=== PATIENT | female | born 1945 | race Caucasian/White ===

== ENCOUNTER → 2016-05-27 | Outpatient (CLI) | payer MEDICARE, OTHER ==
[~2016-05-27] MED LIST: ACHD5005 PO; ASP81TEC PO; ATRV10T PO; GLIM1TAB PO; HYDR-3720 PO; LSNP20T PO; MTF500T PO; ROSU10TA12 PO; SERT50TA9 PO; TRAM50TA2 PO
[2016-05-27 13:02] LABS: BASOPHILS % (AUTO) 1 % (0-10); EOSINOPHILS # (AUTO) 0.1 10^3/uL (0.0-0.3); EOSINOPHILS % (AUTO) 2 % (0-10); LYMPHOCYTES # (AUTO) 1.7 X 10^3 (1.0-4.0); LYMPHOCYTES % (AUTO) 32 % (12-44); MEAN CORPUSCULAR HEMOGLOBIN 31 PG (25-34); MEAN CORPUSCULAR HGB CONC 33 G/DL (32-36); MEAN CORPUSCULAR VOLUME 94 FL (80-99); MEAN PLATELET VOLUME 11.2 FL (7.4-10.4); MONOCYTES # (AUTO) 0.6 X 10^3 (0.0-1.0); MONOCYTES % (AUTO) 11 % (0-12); NEUTROPHILS # (AUTO) 2.9 X 10^3 (1.8-7.8); NEUTROPHILS % (AUTO) 55 % (42-75); PLATELET COUNT 150 10^3/uL (130-400); RED BLOOD COUNT 4.17 10^6/uL (4.35-5.85); RED CELL DISTRIBUTION WIDTH 12.6 % (10.0-14.5); WHITE BLOOD COUNT 5.2 10^3/uL (4.3-11.0)
[2016-05-27 13:35] LABS: ALANINE AMINOTRANSFERASE 18 U/L (0-55); ALBUMIN 3.6 G/DL (3.2-4.5); ANION GAP 7 MMOL/L (5-14); ASPARTATE AMINO TRANSFERASE 16 U/L (5-34); BILIRUBIN,TOTAL 0.6 MG/DL (0.1-1.0); BLOOD UREA NITROGEN 11 MG/DL (7-18); BUN/CREATININE RATIO 13; CALCIUM 8.7 MG/DL (8.5-10.1); CARBON DIOXIDE 28 MMOL/L (21-32); CHLORIDE 108 MMOL/L (98-107); CREATININE SERUM 0.87 MG/DL (0.60-1.30); GFR ESTIMATED > 60; GLUCOSE 127 MG/DL (70-105); POTASSIUM 4.1 MMOL/L (3.6-5.0); SODIUM 143 MMOL/L (135-145); TOTAL PROTEIN 6.1 G/DL (6.4-8.2)
== END ==
LOC: ONC 12:32
PROVIDERS: ATTEND Internal Medicine Hematology & Oncology
DX: D05.12 Intraductal carcinoma in situ of left breast (principal); E11.9 Type 2 diabetes mellitus without complications; I10 Essential (primary) hypertension; Z79.810 Long term (current) use of selective estrogen receptor modulators (SERMs)
CPT/HCPCS: 36415; 80053; 85025; 99213

== ENCOUNTER → 2016-06-28 | Outpatient (CLI) | payer MEDICARE, OTHER ==
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
--- NOTE | 2016-06-28 21:19 | Diagnostic Imaging Report ---
INDICATION: Screening. The current study was also evaluated with a Computer Aided Detection (CAD) system. Comparison made with prior examinations of 06/25/2015, 12/18/2014, 06/19/2014, 08/17/2013, 08/02/2013, and 03/05/2013. FINDINGS: There is a moderate amount of residual fibroglandular tissue bilaterally. There is an unchanged nodular density in the central right breast on a CC projection. There are some vascular calcifications. There is no new dominant mass, spiculated lesion, or suspicious calcification identified. IMPRESSION: Benign. ACR BI-RADS Category 2: Benign findings. Result letter will be mailed to the patient. Note: At least 10% of breast cancer is not imaged by mammography. Dictated by: Dictated on workstation # [id number]
== END ==
LOC: RAD 10:24
PROVIDERS: ATTEND Nurse Practitioner Adult Health
DX: Z12.31 Encounter for screening mammogram for malignant neoplasm of breast (principal)
CPT/HCPCS: 77067

== ENCOUNTER → 2017-05-13 | Outpatient (CLI) | payer MEDICARE, OTHER ==
--- NOTE | 2017-05-13 13:30 | Diagnostic Imaging Report ---
INDICATION: Fall. Left wrist and hand pain. FINDINGS: Left wrist shows no fractures. There are no dislocations. Radiocarpal joint is normal. No evidence of intercarpal ligament disruption demonstrated. No evidence of osteonecrosis. IMPRESSION: Normal left wrist. Dictated by: Dictated on workstation # [id number]
--- NOTE | 2017-05-13 14:13 | Diagnostic Imaging Report ---
INDICATION: Status post recent fall, pain of the distal forearm through the fingers. TECHNIQUE: Three views of the left hand. CORRELATION STUDY: None FINDINGS: Osseous structures intact. Alignment anatomic. Mild joint space narrowing through the interphalangeal joint. A single screw involving the middle phalanx of the ring finger. Mild diffuse bony demineralization. No definitive soft tissue foreign body. Mild soft tissue swelling is noted along the dorsal aspect. IMPRESSION: 1. Negative for acute bony abnormality of the hand. Dictated by: Dictated on workstation # [id number]
== END ==
LOC: RAD 12:28
PROVIDERS: ATTEND Family Medicine
DX: M25.532 Pain in left wrist (principal); M79.642 Pain in left hand; M79.645 Pain in left finger(s); W19.XXXA Unspecified fall, initial encounter
CPT/HCPCS: 73110; 73130

== ENCOUNTER 2017-06-03 15:13 | Outpatient (RCR) | payer MEDICARE, OTHER ==
[2017-05-26 13:18] LABS: BASOPHILS % (AUTO) 1 % (0-10); EOSINOPHILS # (AUTO) 0.1 10^3/uL (0.0-0.3); EOSINOPHILS % (AUTO) 2 % (0-10); HEMATOCRIT 40 % (35-52); HEMOGLOBIN 13.5 G/DL (11.5-16.0); LYMPHOCYTES # (AUTO) 1.9 X 10^3 (1.0-4.0); LYMPHOCYTES % (AUTO) 33 % (12-44); MEAN CORPUSCULAR HEMOGLOBIN 32 PG (25-34); MEAN CORPUSCULAR HGB CONC 34 G/DL (32-36); MEAN CORPUSCULAR VOLUME 95 FL (80-99); MONOCYTES # (AUTO) 0.6 X 10^3 (0.0-1.0); MONOCYTES % (AUTO) 11 % (0-12); NEUTROPHILS # (AUTO) 3.1 X 10^3 (1.8-7.8); NEUTROPHILS % (AUTO) 53 % (42-75); PLATELET COUNT 161 10^3/uL (130-400); RED BLOOD COUNT 4.21 10^6/uL (4.35-5.85); RED CELL DISTRIBUTION WIDTH 12.6 % (10.0-14.5); WHITE BLOOD COUNT 5.8 10^3/uL (4.3-11.0)
[2017-05-26 13:49] LABS: ALANINE AMINOTRANSFERASE 22 U/L (0-55); ALBUMIN 3.7 GM/DL (3.2-4.5); ALKALINE PHOSPHATASE 51 U/L (40-136); BILIRUBIN,TOTAL 0.5 MG/DL (0.1-1.0); BUN/CREATININE RATIO 16; CALCIUM 8.9 MG/DL (8.5-10.1); CARBON DIOXIDE 25 MMOL/L (21-32); CHLORIDE 107 MMOL/L (98-107); CREATININE SERUM 0.81 MG/DL (0.60-1.30); GFR ESTIMATED > 60; GLUCOSE 107 MG/DL (70-105); SODIUM 142 MMOL/L (135-145); TOTAL PROTEIN 6.6 GM/DL (6.4-8.2)
== END 2017-08-24 | disposition home or self-care (01) ==
LOC: ONC 15:13
PROVIDERS: ATTEND Internal Medicine Hematology & Oncology
DX: D05.12 Intraductal carcinoma in situ of left breast (principal); E11.9 Type 2 diabetes mellitus without complications; I10 Essential (primary) hypertension; Z79.810 Long term (current) use of selective estrogen receptor modulators (SERMs); Z79.899 Other long term (current) drug therapy
CPT/HCPCS: 36415; 80053; 82274; 85025; 99213

== ENCOUNTER → 2017-06-29 | Outpatient (CLI) | payer MEDICARE, OTHER ==
--- NOTE | 2017-06-29 18:23 | Diagnostic Imaging Report ---
INDICATION: Routine screening. COMPARISON: Comparison is made with prior exam from 06/28/2016 and 06/25/2015. The current study was also evaluated with a Computer Aided Detection (CAD) system. FINDINGS: Scattered fibroglandular densities are identified bilaterally. Post biopsy changes are identified in the upper-outer aspect of the left breast and appear stable. There are parenchymal and vascular calcifications which appear benign. No mass or malignant-appearing microcalcifications are seen. The axillae are unremarkable. IMPRESSION: Stable bilateral mammograms with no mammographic features suspicious for malignancy identified. ACR BI-RADS Category 2: Benign findings. Result letter will be mailed to the patient. Note: At least 10% of breast cancer is not imaged by mammography. Dictated by: Dictated on workstation # [id number]
== END ==
LOC: RAD 14:24
PROVIDERS: ATTEND Nurse Practitioner Adult Health
DX: Z12.31 Encounter for screening mammogram for malignant neoplasm of breast (principal); D05.12 Intraductal carcinoma in situ of left breast
CPT/HCPCS: 77067

== ENCOUNTER → 2017-08-18 | Outpatient (CLI) | payer OTHER, MEDICARE ==
--- NOTE | 2017-08-18 11:54 | Diagnostic Imaging Report ---
INDICATION: Left lateral and dorsal foot pain and swelling. Time of exam 11:02 AM 3 views of the left foot were obtained. Alignment is normal. There is a probable healing fracture of the left fifth metatarsal near the junction of the proximal and mid third. There is some residual lucency extending through the lateral cortex at this location. No displacement is seen. Phalanges are intact. Midfoot and hindfoot are unremarkable apart from degenerative changes at the first tarsal metatarsal joint. IMPRESSION: Findings suggestive of a healing fracture of the fifth metatarsal, as described. Dictated by: Dictated on workstation # [id number]
== END ==
LOC: RAD 10:26
PROVIDERS: ATTEND Family Medicine
DX: S99.922A Unspecified injury of left foot, initial encounter (principal)
CPT/HCPCS: 73630

== ENCOUNTER → 2017-09-09 | Outpatient (CLI) | payer OTHER, MEDICARE ==
--- NOTE | 2017-09-09 15:45 | Diagnostic Imaging Report ---
INDICATION: Followup left foot fracture. TIME OF EXAM: 2:55 p.m. COMPARISON: Correlation is made with prior study from 08/18/2017. FINDINGS: Multiple views of the left foot again demonstrate probable healing fracture of the fifth metatarsal. There continues to be a transversely oriented lucency through the lateral cortex consistent with an incompletely healed fracture. The remaining metatarsals are intact. Phalanges are unremarkable. Midfoot and hindfoot are unremarkable. IMPRESSION: Healing fifth metatarsal fracture, similar in appearance to the examination from 08/18/2017. Dictated by: Dictated on workstation # [id number]
== END ==
LOC: RAD 14:26
PROVIDERS: ATTEND Family Medicine
DX: S92.352A Displaced fracture of fifth metatarsal bone, left foot, initial encounter for closed fracture (principal); X58.XXXA Exposure to other specified factors, initial encounter
CPT/HCPCS: 73630

== ENCOUNTER → 2017-11-07 | Outpatient (CLI) | payer OTHER, MEDICARE ==
--- NOTE | 2017-11-07 17:34 | Diagnostic Imaging Report ---
INDICATION: Trauma. Pain. COMPARISON: 09/09/2017. FINDINGS: Three views of the left foot are obtained. There is mild generalized osteopenia. There is a fracture again seen through the proximal aspect of the fifth metatarsal. When compared to the prior exam from September, there is a new/recurrent fracture lucency through this region concerning for reinjury/refracture. There is some residual callus seen at the fracture site medially. No additional fracture or osseous destructive process is seen. There are degenerative changes of the first metatarsal-cuneiform articulation. IMPRESSION: There appears to be an acute fracture superimposed over an old healing fracture along the proximal aspect of the fifth metatarsal. There is no discrete fracture seen over the second digit. Dictated by: Dictated on workstation # [id number]
== END ==
LOC: RAD 16:58
PROVIDERS: ATTEND Family Medicine
DX: S99.922A Unspecified injury of left foot, initial encounter (principal); S92.352D Displaced fracture of fifth metatarsal bone, left foot, subsequent encounter for fracture with routine healing
CPT/HCPCS: 73630

== ENCOUNTER → 2018-02-20 | Outpatient (CLI) | payer OTHER, MEDICARE ==
--- NOTE | 2018-02-20 17:12 | Diagnostic Imaging Report ---
INDICATION: Left foot pain COMPARISON is made to a study from 11/07/2017. FINDINGS: A fracture of the proximal shaft of the fifth metatarsal is again noted. There has been some healing on the medial cortex but the fracture line is still apparent on the lateral cortical surface. There does however appear to be some bridging callus. IMPRESSION: Healing fracture of the left fifth metatarsal. This has shown considerable interval healing since 11/07/2017. Dictated by: Dictated on workstation # [id number]
== END ==
LOC: RAD 15:21
PROVIDERS: ATTEND Nurse Practitioner Family
DX: S92.352D Displaced fracture of fifth metatarsal bone, left foot, subsequent encounter for fracture with routine healing (principal)
CPT/HCPCS: 73630

== ENCOUNTER → 2018-03-23 | Outpatient (CLI) | payer MEDICARE, OTHER ==
--- NOTE | 2018-03-23 16:51 | Diagnostic Imaging Report ---
INDICATION: Left foot pain. TECHNIQUE: AP, oblique, and lateral views of the left foot were obtained. COMPARISON: 02/20/2018. FINDINGS: A subacute fracture is again visualized in the fifth metatarsal proximally without change in alignment compared to the prior study. There is persistent lucency at the fracture site which appears about the same as on the previous study. There is underlying degenerative change of the first tarsal/metatarsal joint. There is osteopenia. IMPRESSION: Unchanged appearance of the fifth metatarsal fracture with persistent lucency at the fracture site. The alignment is unchanged compared to the prior study. There is underlying degenerative change as above. There is no new finding otherwise seen. Dictated by: Dictated on workstation # [id number]
== END ==
LOC: RAD 13:48
PROVIDERS: ATTEND Nurse Practitioner Family
DX: S92.352A Displaced fracture of fifth metatarsal bone, left foot, initial encounter for closed fracture (principal)
CPT/HCPCS: 73630

== ENCOUNTER 2018-05-17 09:40 | Outpatient (CLI) | payer MEDICARE, OTHER ==
[~2018-05-17] VITALS: Ht 167.6 cm; Wt 102.5 kg
[2018-05-17] MEDS ORDERED: LISI-552 PO (09:56)
[2018-05-17] MEDS ORDERED: TAMO20TA2 PO (09:56)
[2018-05-17] MEDS ORDERED: ASPI-999 PO (09:56)
[2018-05-17] MEDS ORDERED: SERT50TA9 PO (09:56)
[2018-05-17] MEDS ORDERED: LEVO25TA5 PO (09:56)
[2018-05-17] MEDS ORDERED: METF-397 PO (09:56)
[2018-05-17] MEDS ORDERED: ATOR10TA66 PO (09:56)
[2018-05-17 10:00] VITALS: BP 126/57
== END 2018-05-17 10:29 | disposition home or self-care (01) ==
LOC: PREOP 09:40
PROVIDERS: ATTEND Podiatrist Foot & Ankle Surgery
DX: Z01.818 Encounter for other preprocedural examination (principal)
CPT/HCPCS: 87081

== ENCOUNTER 2018-05-22 06:04 | Day surgery (SDC) | payer MEDICARE, OTHER ==
[~2018-05-22] VITALS: Ht 167.6 cm; Wt 102.5 kg
[~2018-05-22 06:04] MED LIST changes: +ASPI-999 PO; +ATOR10TA66 PO; +LEVO25TA5 PO; +LISI-552 PO; +METF-397 PO; +TAMO20TA2 PO
--- OUTSIDE RECORDS SUMMARY | 2018-05-22 06:09 | XMS REPORT | CCD ---
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 Name Role Phone PP Unavailable CCM Unavailable Summary Purpose Interface Exchange Insurance Providers Payer name Policy type / Coverage type Covered constitution party ID Effective Begin Date Effective End Date WPS Medicare Part B Medicare Part B [id number] 2018 Unknown [employer] Medicare Part B [id number] Unknown Family History Family History data not found Social History Social History Element Codes Description Effective Dates Marital status Unknown Enrique 01/23/2018 Number of children Unknown 4 01/23/2018 Employment Unknown Retired 01/23/2018 Employment Unknown Retired 01/23/[address]: 843942285 Never smoker 01/23/[address]: 094600160 Never drinks alcohol 01/23/2018 Allergies, Adverse Reactions, Alerts Substance Reaction Codes Entered Date Inactivated Date Status * NO KNOWN DRUG ALLERGIES Unknown 04/06/2018 No Inactive Date Active Past Medical History Illness Codes Condition Status Onset Date Resolved Date Essential (primary) hypertension ICD-9: 401.1 ICD-10: I10 Active 01/23/2018 Unknown Pain in left foot ICD- 9: 729.5 ICD-10: M79.672 Active 02/20/2018 Unknown Type 2 diabetes mellitus without complications ICD-9: 250.00 ICD-10: E11.9 Active 01/23/2018 Unknown Hypothryroidism Unknown Active 04/24/2018 Unknown Hypothyroidism, unspecified ICD-9: 244.9 ICD-10: E03.9 Active 04/24/2018 Unknown Lumbago with sciatica, right side ICD-9: 724.3 ICD-10: M54.41 Active 04/06/2018 Unknown Major depressive disorder, recurrent, mild ICD-9: 296.31 ICD-10: F33.0 Active 01/23/2018 Unknown Other specified abnormal findings of blood chemistry ICD-9: 794.5 ICD-10: R79.89 Active 04/11/2018 Unknown Sciatica Unknown Active 04/06/2018 Unknown Mixed hyperlipidemia ICD-9: 272.2 ICD-10: E78.2 Active 01/23/2018 Unknown Diabetes Unknown Active 01/23/2018 Unknown Cough ICD-9: 786.2 ICD-10: R05 Active 01/23/2018 Unknown Problems Condition Codes Effective Dates Condition Status Essential (primary) hypertension ICD-9: 401.1 ICD-10: I10 01/23/2018 Active Pain in left foot ICD- 9: 729.5 ICD-10: M79.672 02/20/2018 Active Type 2 diabetes mellitus without complications ICD-9: 250.00 ICD-10: E11.9 01/23/2018 Active Hypothryroidism Unknown 04/24/2018 Active Hypothyroidism, unspecified ICD-9: 244.9 ICD-10: E03.9 04/24/2018 Active Lumbago with sciatica, right side ICD-9: 724.3 ICD-10: M54.41 04/06/2018 Active Major depressive disorder, recurrent, mild ICD-9: 296.31 ICD-10: F33.0 01/23/2018 Active Other specified abnormal findings of blood chemistry ICD-9: 794.5 ICD-10: R79.89 04/11/2018 Active Sciatica Unknown 04/06/2018 Active Mixed hyperlipidemia ICD-9: 272.2 ICD-10: E78.2 01/23/2018 Active Diabetes Unknown 01/23/2018 Active Cough ICD-9: 786.2 ICD-10: R05 01/23/2018 Active Medications Medication Codes Instructions Start Date Stop Date Status Fill Instructions metformin ER 1,000 mg 24 hr tablet,extended release RxNorm: 4188767 1 Tablet(s) PO daily 04/24/2018 07/17/2019 Active Synthroid 25 mcg tablet RxNorm: 160374 1 Tablet(s) PO QAM 04/1207/10/2018 Active Synthroid 25 mcg tablet RxNorm: 436907 1 Tablet(s) PO QAM 04/1204/11/2018 Inactive Lipitor 10 mg tablet RxNorm: 561914 1 Tablet(s) PO daily 201702/24/2019 Active lisinopril 20 mg tablet RxNorm: 962340 1 Tablet(s) PO daily 12/201708/11/2018 Active Lipitor 10 mg tablet RxNorm: 258421 1 Tablet(s) PO every other day 02/13/2018 03/01/2018 Inactive metformin ER 500 mg tablet,extended release 24 hr RxNorm: 151305 1 Tablet(s) PO daily 02/06/2018 04/23/2018 Inactive sertraline 100 mg tablet RxNorm: 672020 1 Tablet(s) PO daily 07/21/2018 Active lisinopril 20 mg tablet RxNorm: 940937 1 Tablet(s) PO daily 02/12/2018 Inactive Lipitor 10 mg tablet RxNorm: 089679 1 Tablet(s) PO daily 201701/22/2018 Inactive lisinopril 20 mg tablet RxNorm: 161403 1 Tablet(s) PO daily 01/22/2018 Inactive Lipitor 10 mg tablet RxNorm: 514839 1 Tablet(s) PO every other day 01/23/2018 02/12/2018 Inactive tamoxifen 20 mg tablet RxNorm: 899162 1 Tablet(s) PO daily No Start Date Active aspirin 81 mg tablet,delayed release RxNorm: 701086 1 Tablet(s) PO daily No Start Date Active metformin ER 500 mg tablet,extended release 24 hr RxNorm: 835490 1 Tablet(s) PO daily No Start Date 02/05/2018 Inactive sertraline 100 mg tablet RxNorm: 462317 1 Tablet(s) PO daily No Start Date 01/22/2018 Inactive Medication Administered No Medication Administered data Immunizations No Immunization data Assessments Condition Codes Effective Dates Type 2 diabetes mellitus without complications ICD-10: E11.9 ICD-9: 250.00 05/15/2018 Pain in left foot ICD-10: M79.672 ICD-9: 729.5 05/15/2018 Essential (primary) hypertension ICD-10: I10 ICD-9: 401.1 05/15/2018 Lumbago with sciatica, right side ICD-10: M54.41 ICD-9: 724.3 04/24/2018 Major depressive disorder, recurrent, mild ICD-10: F33.0 ICD-9: 296.31 04/24/2018 Hypothyroidism, unspecified ICD-10: E03.9 ICD-9: 244.9 04/24/2018 Other specified abnormal findings of blood chemistry ICD-10 : R79.89 ICD-9: 794.5 04/11/2018 Mixed hyperlipidemia ICD-10: E78.2 ICD-9: 272.2 04/06/2018 Cough ICD-10: R05 ICD-9: 786.2 01/23/2018 Reason For Visit Reason For Visit Effective Dates Notes pre-op/surgery consult 05/15/2018 low back and leg pain 04/24/2018 low back and leg pain 04/06/2018 foot pain 02/20/2018 cough 01/23/2018 Results Observation Observation Code Item Item Code Result Date Free T4 Gay927 FREE T4 0.71 ng/dL 04/11/2018 Cbc With Differential Ord2 WBC 6.91 K/ul 04/07/2018 Cbc With Differential Ord2 RBC 4.18 M/ul 04/07/2018 Cbc With Differential Ord2 HGB 13.4 g/dl 04/07/2018 Cbc With Differential Ord2 HCT 40.7 % 04/07/2018 Cbc With Differential Ord2 Neut% 55.8 % 04/07/2018 Cbc With Differential Ord2 MCV 97.4 fl 04/07/2018 Cbc With Differential Ord2 Lymph% 31.1 % 04/07/2018 Cbc With Differential Ord2 MCH 32.1 pg 04/07/2018 Cbc With Differential Ord2 [place]% 10.0 % 04/07/2018 Cbc With Differential Ord2 MCHC 32.9 pg 04/07/2018 Cbc With Differential Ord2 Eos% 2.7 % 04/07/2018 Cbc With Differential Ord2 PLT 171 K/ul 04/07/2018 Cbc With Differential Ord2 Baso% 0.4 % 04/07/2018 Cbc With Differential Ord2 RDW 12.9 % 04/07/2018 Cbc With Differential Ord2 Neut ABS# 3.85 K/ul 04/07/2018 Cbc With Differential Ord2 Lymph ABS# 2.15 K/ul 04/07/2018 Cbc With Differential Ord2 [place] ABS# 0.7 K/ul 04/07/2018 Cbc With Differential Ord2 Eos ABS# 0.2 K/ul 04/07/2018 Cbc With Differential Ord2 Baso ABS# 0.0 K/ul 04/07/2018 Lipid Ord30 CHOL 161 mg/dL 04/07/2018 Lipid Ord30 HDL 56.0 mg/dl 04/07/2018 Lipid Ord30 TRIG 99 mg/dL 04/07/2018 Lipid Ord30 LDL 85 mg/dL 04/07/2018 Lipid Ord30 C/HDL 2.9 Ratio 04/07/2018 Tsh Ord6 TSH (3rd IS) 7.03 uIU/mL 04/07/2018 Comp Metabolic Izv873 NA 141 mEq/L 04/07/2018 Comp Metabolic Edn691 K 3.9 mEq/L 04/07/2018 Comp Metabolic Mfo570 CL 103 mEq/L 04/07/2018 Comp Metabolic Sdi454 CO2 30.0 mEq/L 04/07/2018 Comp Metabolic Hsb419 ANION GAP 12 04/07/2018 Comp Metabolic Gte727 GLUCOSE 127 mg/dL 04/07/2018 Comp Metabolic Ukb285 Creat 0.8 mg/dL 04/07/2018 Comp Metabolic Gko922 eGFR 78 ml/min/1.73m2 04/07/2018 Comp Metabolic Tnu333 BUN 16 mg/dL 04/07/2018 Comp Metabolic Awt061 B/C Ratio 20.8 Ratio 04/07/2018 Comp Metabolic Zlw979 CALCIUM 8.9 mg/dL 04/07/2018 Comp Metabolic Amb090 ALK PHOS 48 U/L 04/07/2018 Comp Metabolic Uqp887 AST(SGOT) 17 U/L 04/07/2018 Comp Metabolic Uqt949 ALT(SGPT) 17 U/L 04/07/2018 Comp Metabolic Sel930 BILI T 0.7 mg/dL 04/07/2018 Comp Metabolic Yav537 ALBUMIN 3.6 g/dL 04/07/2018 Comp Metabolic Lfz750 TPRO 6.0 g/dL 04/07/2018 Comp Metabolic Eoq266 GLOB 2.4 g/dL 04/07/2018 Comp Metabolic Pcw064 A/G Ratio 1.5 Ratio 04/07/2018 Comp Metabolic Wsj556 Osmo 284 mOsmo 04/07/2018 %Hba1C Jzx347 % HbA1c 64260-0 6.7 % 04/07/2018 %Hba1C Dwv943 Gluc Ave 146 mg/dL 04/07/2018 Review of Systems System Result Effective Dates Constitutional recent illness 05/15/2018 Constitutional No anorexia 05/15/2018 Constitutional No night sweats 2018 Constitutional No chills 05/15/2018 Constitutional No diaphoresis 05/15/2018 Constitutional fatigue 05/15/2018 Constitutional No fever 05/15/2018 Constitutional No insomnia 05/15/2018 Constitutional No malaise 05/15/2018 Constitutional No weight loss 05/15/2018 Eyes No eye discharge 05/15/2018 Eyes No eye erythema 05/15/2018 Ears/Nose/Throat/Neck No dizziness 2018 Ears/Nose/Throat/Neck No headache 2018 Ears/Nose/Throat/Neck No nasal allergies 05/15/2018 Ears/Nose/Throat/Neck No nasal discharge 05/15/2018 Ears/Nose/Throat/Neck No otalgia 2018 Cardiovascular No chest pain/pressure 11/2018 Cardiovascular No dyspnea 05/15/2018 Cardiovascular No edema 05/15/2018 Gastrointestinal No abdominal pain 2018 Gastrointestinal No constipation 2018 Gastrointestinal No diarrhea 05/15/2018 Genitourinary/Nephrology No dysuria 05/15 Musculoskeletal back pain 05/15/2018 Musculoskeletal joint complaint 2018 Musculoskeletal sciatica 05/15/2018 Dermatologic No rash 05/15/2018 Neurologic No alteration of consciousness 05/15/2018 Psychiatric depression 05/15/2018 Endocrine No dry or coarse skin 2018 Constitutional No recent illness 2017 Constitutional No anorexia 04/24/2018 Constitutional No night sweats 2017 Constitutional No chills 04/24/2018 Constitutional No diaphoresis 04/24/2018 Constitutional fatigue 04/24/2018 Constitutional No fever 04/24/2018 Constitutional No insomnia 04/24/2018 Constitutional No malaise 04/24/2018 Constitutional No weight loss 04/24/2018 Constitutional weight gain 04/24/2018 Eyes No eye discharge 04/24/2018 Eyes No eye erythema 04/24/2018 Ears/Nose/Throat/Neck No dizziness 2017 Ears/Nose/Throat/Neck No headache 2017 Ears/Nose/Throat/Neck No nasal allergies 04/24/2018 Ears/Nose/Throat/Neck No nasal discharge 04/24/2018 Ears/Nose/Throat/Neck No otalgia 2017 Cardiovascular No chest pain/pressure Cardiovascular No dyspnea 04/24/2018 Cardiovascular No edema 04/24/2018 Gastrointestinal No abdominal pain 2017 Gastrointestinal No constipation 2017 Gastrointestinal No diarrhea 04/24/2018 Genitourinary/Nephrology No dysuria 04/24 Musculoskeletal back pain 04/24/2018 Musculoskeletal joint complaint 2017 Musculoskeletal sciatica 04/24/2018 Dermatologic No rash 04/24/2018 Neurologic No alteration of consciousness 04/24/2018 Psychiatric depression 04/24/2018 Endocrine No dry or coarse skin 2017 Constitutional obesity 04/24/2018 Respiratory No cough 04/24/2018 Constitutional recent illness 04/06/2018 Constitutional No anorexia 04/06/2018 Constitutional No night sweats 2017 Constitutional No chills 04/06/2018 Constitutional No diaphoresis 04/06/2018 Constitutional fatigue 04/06/2018 Constitutional No fever 04/06/2018 Constitutional No insomnia 04/06/2018 Constitutional No malaise 04/06/2018 Constitutional No weight loss 04/06/2018 Constitutional weight gain 04/06/2018 Eyes No eye discharge 04/06/2018 Eyes No eye erythema 04/06/2018 Ears/Nose/Throat/Neck No dizziness 2017 Ears/Nose/Throat/Neck No headache 2017 Ears/Nose/Throat/Neck No nasal allergies 04/06/2018 Ears/Nose/Throat/Neck No nasal discharge 04/06/2018 Ears/Nose/Throat/Neck No otalgia 2017 Cardiovascular No chest pain/pressure Cardiovascular No dyspnea 04/06/2018 Cardiovascular No edema 04/06/2018 Gastrointestinal No abdominal pain 2017 Gastrointestinal No constipation 2017 Gastrointestinal No diarrhea 04/06/2018 Genitourinary/Nephrology No dysuria 04/06 Musculoskeletal joint complaint 2017 Dermatologic No rash 04/06/2018 Neurologic No alteration of consciousness 04/06/2018 Psychiatric depression 04/06/2018 Endocrine No dry or coarse skin 2017 Musculoskeletal back pain 04/06/2018 Musculoskeletal sciatica 04/06/2018 Constitutional No recent illness 2017 Constitutional No anorexia 02/20/2018 Constitutional No night sweats 2017 Constitutional No chills 02/20/2018 Constitutional No diaphoresis 02/20/2018 Constitutional No fatigue 02/20/2018 Constitutional No fever 02/20/2018 Constitutional No insomnia 02/20/2018 Constitutional No malaise 02/20/2018 Constitutional No weight gain 02/20/2018 Constitutional No weight loss 02/20/2018 Musculoskeletal joint complaint 2017 Musculoskeletal bone fracture 02/20/2018 Constitutional recent illness 01/23/2018 Constitutional No anorexia 01/23/2018 Constitutional No night sweats 2017 Constitutional No chills 01/23/2018 Constitutional No diaphoresis 01/23/2018 Constitutional fatigue 01/23/2018 Constitutional No fever 01/23/2018 Constitutional No insomnia 01/23/2018 Constitutional No malaise 01/23/2018 Constitutional No weight loss 01/23/2018 Constitutional weight gain 01/23/2018 Eyes No eye discharge 01/23/2018 Eyes No eye erythema 01/23/2018 Ears/Nose/Throat/Neck No dizziness 2017 Ears/Nose/Throat/Neck No headache 2017 Ears/Nose/Throat/Neck No nasal allergies 01/23/2018 Ears/Nose/Throat/Neck No nasal discharge 01/23/2018 Ears/Nose/Throat/Neck No otalgia 2017 Cardiovascular No chest pain/pressure Cardiovascular No dyspnea 01/23/2018 Cardiovascular No edema 01/23/2018 Cardiovascular hypertension 01/23/2018 Respiratory productive sputum 01/23/2018 Respiratory cough 01/23/2018 Gastrointestinal No abdominal pain 2017 Gastrointestinal No constipation 2017 Gastrointestinal No diarrhea 01/23/2018 Genitourinary/Nephrology No dysuria 01/23 Musculoskeletal joint complaint 2017 Dermatologic No rash 01/23/2018 Neurologic No alteration of consciousness 01/23/2018 Psychiatric depression 01/23/2018 Endocrine No dry or coarse skin 2017 Physical Exam Exam Name System Name Item Name Status Result Effective Dates Notes Full Exam - General 1994 Constitutional general appearance Overall: well developed 05/15/2018 None Full Exam - General 1994 Constitutional general appearance Overall: in no acute distress 05/15/2018 None Full Exam - General 1994 Constitutional general appearance Overall: well nourished 05/15/2018 None Full Exam - General 1994 Eyes conjunctiva /eyelids Overall: conjunctiva clear 05/15/2018 None Full Exam - General 1994 Eyes pupils and irises Overall: pupils equal, round, reactive to light and accomodation 05/15/2018 None Full Exam - General 1994 Ears/Nose/Throat otoscopic exam Overall: external auditory canals clear 05/15/2018 None Full Exam - General 1994 Ears/Nose/Throat otoscopic exam Overall: tympanic membranes clear 05/15/2018 None Full Exam - General 1994 Ears/Nose/Throat oral cavity/pharynx/larynx Overall: oral mucosa clear 05/15/2018 None Full Exam - General 1994 Respiratory auscultation Overall: breath sounds clear bilaterally 05/15/2018 None Full Exam - General 1994 Respiratory respiratory effort/rhythm Overall: no retractions 05/15/2018 None Full Exam - General 1994 Respiratory respiratory effort/rhythm Overall: normal rate 05/15/2018 None Full Exam - General 1994 Cardiovascular auscultation of heart Overall: regular rate 05/15/2018 None Full Exam - General 1994 Cardiovascular auscultation of heart Overall: normal heart sounds 05/15/2018 None Full Exam - General 1994 Cardiovascular auscultation of heart Overall: no murmurs 05/15/2018 None Full Exam - General 1994 Abdomen abdominal exam Overall: no tenderness 05/15/2018 None Full Exam - General 1994 Abdomen abdominal exam Overall: normal bowel sounds 05/15/2018 None Full Exam - General 1994 Lymphatic neck nodes Overall: anterior cervical chain benign 05/15/2018 None Full Exam - General 1994 Lymphatic neck nodes Overall: posterior cervical chain benign 05/15/2018 None Full Exam - General 1994 Musculoskeletal spine, ribs and pelvis Sacroiliac joints: tender right sacroiliac joint 05/15/2018 None Full Exam - General 1994 Musculoskeletal gait and station Overall: normal station 05/15/2018 None Full Exam - General 1994 Integument inspection of skin Overall: few scattered moles, no gross abnormalities 05/15/2018 None Full Exam - General 1994 Neurologic cranial nerves Overall: crainial nerves 2 - 12 grossly intact 05/15/2018 None Full Exam - General 1994 Psychiatric orientation/consciousness Overall: oriented to person, place and time 05/15/2018 None Full Exam - General 1994 Constitutional general appearance Overall: well developed 04/24/2018 None Full Exam - General 1994 Constitutional general appearance Overall: in no acute distress 04/24/2018 None Full Exam - General 1994 Constitutional general appearance Overall: well nourished 04/24/2018 None Full Exam - General 1994 Eyes conjunctiva /eyelids Overall: conjunctiva clear 04/24/2018 None Full Exam - General 1994 Eyes pupils and irises Overall: pupils equal, round, reactive to light and accomodation 04/24/2018 None Full Exam - General 1994 Ears/Nose/Throat otoscopic exam Overall: external auditory canals clear 04/24/2018 None Full Exam - General 1994 Ears/Nose/Throat otoscopic exam Overall: tympanic membranes clear 04/24/2018 None Full Exam - General 1994 Ears/Nose/Throat oral cavity/pharynx/larynx Overall: oral mucosa clear 04/24/2018 None Full Exam - General 1994 Respiratory auscultation Overall: breath sounds clear bilaterally 04/24/2018 None Full Exam - General 1994 Respiratory respiratory effort/rhythm Overall: no retractions 04/24/2018 None Full Exam - General 1994 Respiratory respiratory effort/rhythm Overall: normal rate 04/24/2018 None Full Exam - General 1994 Cardiovascular auscultation of heart Overall: regular rate 04/24/2018 None Full Exam - General 1994 Cardiovascular auscultation of heart Overall: normal heart sounds 04/24/2018 None Full Exam - General 1994 Cardiovascular auscultation of heart Overall: no murmurs 04/24/2018 None Full Exam - General 1994 Abdomen abdominal exam Overall: no tenderness 04/24/2018 None Full Exam - General 1994 Abdomen abdominal exam Overall: normal bowel sounds 04/24/2018 None Full Exam - General 1994 Lymphatic neck nodes Overall: anterior cervical chain benign 04/24/2018 None Full Exam - General 1994 Lymphatic neck nodes Overall: posterior cervical chain benign 04/24/2018 None Full Exam - General 1994 Musculoskeletal spine, ribs and pelvis Sacroiliac joints: tender right sacroiliac joint 04/24/2018 None Full Exam - General 1994 Musculoskeletal gait and station Overall: normal gait 04/24/2018 None Full Exam - General 1994 Musculoskeletal gait and station Overall: normal station 04/24/2018 None Full Exam - General 1994 Integument inspection of skin Overall: few scattered moles, no gross abnormalities 04/24/2018 None Full Exam - General 1994 Neurologic cranial nerves Overall: crainial nerves 2 - 12 grossly intact 04/24/2018 None Full Exam - General 1994 Psychiatric orientation/consciousness Overall: oriented to person, place and time 04/24/2018 None Full Exam - General 1994 Constitutional general appearance Overall: well developed 04/06/2018 None Full Exam - General 1994 Constitutional general appearance Overall: in no acute distress 04/06/2018 None Full Exam - General 1994 Constitutional general appearance Overall: well nourished 04/06/2018 None Full Exam - General 1994 Eyes conjunctiva /eyelids Overall: conjunctiva clear 04/06/2018 None Full Exam - General 1994 Eyes pupils and irises Overall: pupils equal, round, reactive to light and accomodation 04/06/2018 None Full Exam - General 1994 Ears/Nose/Throat otoscopic exam Overall: external auditory canals clear 04/06/2018 None Full Exam - General 1994 Ears/Nose/Throat otoscopic exam Overall: tympanic membranes clear 04/06/2018 None Full Exam - General 1994 Ears/Nose/Throat oral cavity/pharynx/larynx Overall: oral mucosa clear 04/06/2018 None Full Exam - General 1994 Respiratory auscultation Overall: breath sounds clear bilaterally 04/06/2018 None Full Exam - General 1994 Respiratory respiratory effort/rhythm Overall: no retractions 04/06/2018 None Full Exam - General 1994 Respiratory respiratory effort/rhythm Overall: normal rate 04/06/2018 None Full Exam - General 1994 Cardiovascular auscultation of heart Overall: regular rate 04/06/2018 None Full Exam - General 1994 Cardiovascular auscultation of heart Overall: normal heart sounds 04/06/2018 None Full Exam - General 1994 Cardiovascular auscultation of heart Overall: no murmurs 04/06/2018 None Full Exam - General 1994 Abdomen abdominal exam Overall: no tenderness 04/06/2018 None Full Exam - General 1994 Abdomen abdominal exam Overall: normal bowel sounds 04/06/2018 None Full Exam - General 1994 Lymphatic neck nodes Overall: anterior cervical chain benign 04/06/2018 None Full Exam - General 1994 Lymphatic neck nodes Overall: posterior cervical chain benign 04/06/2018 None Full Exam - General 1994 Musculoskeletal gait and station Overall: normal gait 04/06/2018 None Full Exam - General 1994 Musculoskeletal gait and station Overall: normal station 04/06/2018 None Full Exam - General 1994 Integument inspection of skin Overall: few scattered moles, no gross abnormalities 04/06/2018 None Full Exam - General 1994 Neurologic cranial nerves Overall: crainial nerves 2 - 12 grossly intact 04/06/2018 None Full Exam - General 1994 Psychiatric orientation/consciousness Overall: oriented to person, place and time 04/06/2018 None Full Exam - General 1995 Musculoskeletal spine, ribs and pelvis Sacroiliac joints: tender right sacroiliac joint 04/06/2018 None Full Exam - Orthopedics Constitutional general appearance Overall: well nourished 02/20/2018 None Full Exam - Orthopedics Constitutional general appearance Overall: well developed 02/20/2018 None Full Exam - Orthopedics Constitutional general appearance Overall: in no acute distress 02/20/2018 None Full Exam - Orthopedics Constitutional general appearance Overall: normal body habitus 02/20/2018 None Full Exam - Orthopedics Constitutional general appearance Overall: no deformities 02/20/2018 None Full Exam - Orthopedics Constitutional general appearance Overall: well groomed 02/20/2018 None Full Exam - Orthopedics Constitutional general appearance Overall: atraumatic 02/20/2018 None Full Exam - Orthopedics Constitutional general appearance Overall: no assistive devices 02/20/2018 None Full Exam - Orthopedics Constitutional general appearance Overall: cooperative 02/20/2018 None Full Exam - Orthopedics Constitutional general appearance Overall: healthy appearance 02/20/2018 None Full Exam - Orthopedics Constitutional general appearance Overall: pleasant 02/20/2018 None Full Exam - Orthopedics Constitutional general appearance Overall: relaxed 02/20/2018 None Full Exam - Orthopedics MS: left lower extremity insp & palp - LLE Foot: swelling 02/20/2018 lateral aspect of foot Full Exam - Orthopedics MS: left lower extremity insp & palp - LLE Foot: tenderness at the metatarsals 02/20/2018 None Full Exam - Orthopedics MS: left lower extremity range of motion - LLE Foot: unable to fan toes 02/20/2018 claw toe 2nd toe Full Exam - Orthopedics Respiratory auscultation Overall: breath sounds clear bilaterally 02/20/2018 None Full Exam - Orthopedics Respiratory respiratory effort/rhythm Overall: no retractions 02/20/2018 None Full Exam - Orthopedics Respiratory respiratory effort/rhythm Overall: normal rate 02/20/2018 None Full Exam - Orthopedics Respiratory respiratory effort/rhythm Overall: normal , symmetric chest expansion 02/20/2018 None Full Exam - Orthopedics Cardiovascular examination of vasculature Overall: good capillary refill 02/20/2018 None Full Exam - Orthopedics Eyes conjunctiva/ eyelids Overall: conjunctiva clear 02/20/2018 None Full Exam - Orthopedics Psychiatric orientation/consciousness Overall: oriented to person, place and time 02/20/2018 None Full Exam - Orthopedics Integument insp & palp - left lower extremity Foot inspection: no rash or lesions 02/20/2018 None Full Exam - General 1994 Constitutional general appearance Overall: well developed 01/23/2018 None Full Exam - General 1994 Constitutional general appearance Overall: in no acute distress 01/23/2018 None Full Exam - General 1994 Constitutional general appearance Overall: well nourished 01/23/2018 None Full Exam - General 1994 Psychiatric orientation/consciousness Overall: oriented to person, place and time 01/23/2018 None Full Exam - General 1994 Neurologic cranial nerves Overall: crainial nerves 2 - 12 grossly intact 01/23/2018 None Full Exam - General 1994 Integument inspection of skin Overall: few scattered moles, no gross abnormalities 01/23/2018 None Full Exam - General 1994 Musculoskeletal gait and station Overall: normal gait 01/23/2018 None Full Exam - General 1994 Musculoskeletal gait and station Overall: normal station 01/23/2018 None Full Exam - General 1994 Lymphatic neck nodes Overall: posterior cervical chain benign 01/23/2018 None Full Exam - General 1994 Lymphatic neck nodes Overall: anterior cervical chain benign 01/23/2018 None Full Exam - General 1994 Abdomen abdominal exam Overall: no tenderness 01/23/2018 None Full Exam - General 1994 Abdomen abdominal exam Overall: normal bowel sounds 01/23/2018 None Full Exam - General 1994 Cardiovascular auscultation of heart Overall: regular rate 01/23/2018 None Full Exam - General 1994 Cardiovascular auscultation of heart Overall: normal heart sounds 01/23/2018 None Full Exam - General 1994 Cardiovascular auscultation of heart Overall: no murmurs 01/23/2018 None Full Exam - General 1994 Respiratory auscultation Overall: breath sounds clear bilaterally 01/23/2018 None Full Exam - General 1994 Respiratory respiratory effort/rhythm Overall: no retractions 01/23/2018 None Full Exam - General 1994 Respiratory respiratory effort/rhythm Overall: normal rate 01/23/2018 None Full Exam - General 1994 Ears/Nose/Throat otoscopic exam Overall: external auditory canals clear 01/23/2018 None Full Exam - General 1994 Ears/Nose/Throat otoscopic exam Overall: tympanic membranes clear 01/23/2018 None Full Exam - General 1994 Ears/Nose/Throat oral cavity/pharynx/larynx Overall: oral mucosa clear 01/23/2018 None Full Exam - General 1994 Eyes conjunctiva /eyelids Overall: conjunctiva clear 01/23/2018 None Full Exam - General 1994 Eyes pupils and irises Overall: pupils equal, round, reactive to light and accomodation 01/23/2018 None Procedures No Procedures data Vital Signs Date Vital 05/15/2018 Blood Pressure 1: 128/66 Code : 8480-6 BMI: 36.5 Code : 17470-8 Heart Rate 1 : 83 bpm Height: 5'6" SpO2: 96% Weight: 226 lbs 04/24/2018 Blood Pressure 1: 140/82 Code : 8480-6 BMI: 36.8 Code : 52663-2 Heart Rate 1 : 80 bpm Height: 5'6" SpO2: 92% Weight: 228 lbs 04/06/2018 Blood Pressure 1: 136/56 Code : 8480-6 BMI: 36.6 Code : 62424-7 Heart Rate 1 : 91 bpm Height: 5'6" SpO2: 97% Weight: 227 lbs 02/20/2018 Blood Pressure 1: 140/70 Code : 8480-6 BMI: 36.2 Code : 69608-4 Heart Rate 1 : 88 bpm Height: 5'6" SpO2: 95% Weight: 224 lbs 01/23/2018 Blood Pressure 1: 142/66 Code : 8480-6 BMI: 36.8 Code : 77803-6 Heart Rate 1 : 88 bpm Height: 5'6" SpO2: 97% Weight: 228 lbs Functional Status No Functional Status data History of Present Illness Symptom Name Status Result Effective Date Notes Referred by Dr. Combs 05/15/2018 None Scheduled date of procedure 05/22/2018 05/15/2018 None Significant Medical Conditions hypertension 05/15/2018 None Significant Medical Conditions diabetes 05/15/2018 None Significant Medical Conditions thyroid problem 05/15/2018 None Location on the right 04/24/2018 None Quality acute 2017 None Quality constant None Onset and Resolution sudden in onset 04/24/2018 None Onset of Symptom 1 days ago 04/24/2018 None Limitation on Activities allows weight bearing activity 04/24/2018 None Limitation on Activities moderately limits activities 04/24/2018 None Alleviating Factors rest 04/24/2018 None Exacerbating Factors changing position 04/24/2018 None Exacerbating Factors motion 04/24/2018 None Exacerbating Factors activity 04/24/2018 None Pertinent Findings female 04/24/2018 None Pertinent Findings pain with movement 04/24/2018 None Severity mild 2017 None low back and leg pain Quality acute 04/06/2018 None low back and leg pain Quality constant 04/06/2018 None low back and leg pain Onset and Resolution sudden in onset 04/06/2018 None low back and leg pain Onset of Symptom 1 days ago 04/06/2018 None low back and leg pain Limitation on Activities allows weight bearing activity 04/06/2018 None low back and leg pain Limitation on Activities moderately limits activities 04/06/2018 None low back and leg pain Exacerbating Factors activity 04/06/2018 None low back and leg pain Exacerbating Factors motion 04/06/2018 None low back and leg pain Exacerbating Factors changing position 04/06/2018 None low back and leg pain Location on the right 04/06/2018 None low back and leg pain Alleviating Factors rest 04/06/2018 None low back and leg pain Mechanism of injury unknown 04/06/2018 None weight gain/obesity Location globally 04/06/2018 None weight gain/obesity Onset and Resolution gradual in onset 04/06/2018 None weight gain/obesity Onset and Resolution ongoing 04/06/2018 None weight gain/obesity Triggers unintentional weight gain 04/06/2018 None foot pain Location on the left 02/20/2018 None foot pain Quality intermittent 02/20/2018 None foot pain Onset and Resolution ongoing 02/20/2018 None foot pain Onset of Symptom _ months ago 02/20/2018 None foot pain Mechanism of injury direct trauma 02/20/2018 from fall foot pain Pertinent Findings swelling 02/20/2018 None foot pain Pertinent Findings decreased range of motion 02/20/2018 None foot pain Limitation on Activities allows weight bearing activity 02/20/2018 None foot pain Significant Medical Conditions prior history of fracture involving the foot 02/20/2018 None foot pain Sports Participation not significant 02/20/2018 None foot pain Exacerbating Factors standing 02/20/2018 None foot pain Exacerbating Factors walking 02/20/2018 None cough Location in the lung 01/23/2018 None cough Quality acute None cough Onset and Resolution ongoing 01/23/2018 None cough Onset of Symptom 10 days ago 01/23/2018 None cough Limitation on Activities does not limit activities 01/23/2018 None cough Frequency of Episodes unchanged 01/23/2018 None cough Triggers no known associated factors 01/23/2018 None cough Pertinent Findings Denies chest discomfort 01/23/2018 None cough Pertinent Findings Denies dyspnea 01/23/2018 None cough Pertinent Findings Denies fever 01/23/2018 None Advance Directives No Advance Directive data Encounters Encounter Performer Location Codes Date ([id number]) [id number] EST. PATIENT, LEVEL IV Diagnosis: Essential (primary) hypertension[ICD10: I10] Diagnosis: Pain in left foot[ICD10: M79.672] Diagnosis: Type 2 diabetes mellitus without complications[ICD10: E11.9] Araceli Foster MD, [facility] CPT-4: 87839 05/15/2018 [id number]) 74482 EST. PATIENT, LEVEL III Diagnosis: Type 2 diabetes mellitus without complications[ICD10: E11.9] Diagnosis: Hypothyroidism, unspecified[ICD10: E03.9] Diagnosis: Major depressive disorder, recurrent, mild[ICD10: F33.0] Diagnosis: Lumbago with sciatica, right side[ICD10: M54.41] Willa Foster MD, [facility] CPT-4: 51124 04/24/2018 ([id number]) 07214 EST. PATIENT, LEVEL IV Diagnosis: Type 2 diabetes mellitus without complications[ICD10: E11.9] Diagnosis: Mixed hyperlipidemia[ICD10: E78.2] Diagnosis: Essential (primary) hypertension[ICD10: I10] Diagnosis: Lumbago with sciatica, right side[ICD10: M54.41] Willa Foster MD, [facility] CPT-4: 53980 04/06/2018 [id number]) [id number] EST. PATIENT, LEVEL III Diagnosis: Pain in left foot[ICD10: M79.672] Willa Foster MD, [facility] CPT-4: 32899 02/20/2018 OFFICE VISIT, NEW - LEVEL 3 Diagnosis: Essential (primary) hypertension[ICD10: I10] Diagnosis: Type 2 diabetes mellitus without complications[ICD10: E11.9] Diagnosis: Mixed hyperlipidemia[ICD10: E78.2] Diagnosis: Major depressive disorder, recurrent, mild[ICD10: F33.0] Diagnosis: Cough[ICD10: R05] [facility] CPT-4: 29650 01/23/2018 Plan of Care Planned Activity Notes Codes Status Date Visit Plan: Hypertension - well controlled - continue with current medications, continue with no added salt diet. Pt has been encouraged to exercise daily. The pt has been advised to call the office if there are any acute concerns about change in blood pressure readings at home. Left foot pain - pt to have surgery on the left foot - Dr. Combs to perform surgery on foot next week. Diabetes Mellitus - controlled - per recent FSBS reports. I have recommended for the patient to have follow up labs prior to the next office visit. The patient has been instructed to continue with current medications as previously directed, continue with regular FSBS monitoring to assure continued control of diabetes. Pt to call for any acute concerns, complaints, or if the blood glucose readings are starting to become less controlled. 05/15/2018 Patient Education: Patient Medication Summary Completed 05/15/2018 Patient Education: Diabetes Completed 05/15/2018 Visit Plan: DM-increase metformin as directed Obesity - chronic issue with this patient. The pt has been counseled about diet changes, calorie restriction, and need to exercise. Pt will RTC in one month for weight check. Hypothyroidism-start on Synthroid -repeat labs in 3 months Back pain - mbqzfolm-phnhflqx-dxnf if symptoms return 04/24/2018 Appointment: Willa Singh WPtel: [facility] [phone] (30 min) [facility] 04/24/2018 Patient Education: Patient Medication Summary Completed 04/24/2018 Patient Education: Depression Completed 04/24/2018 Patient Education: Diabetes Completed 04/24/2018 Patient Education: Patient Medication Summary Completed 04/11/2018 Visit Plan: Diabetes Mellitus - I have recommended for the patient to have follow up labs prior to the next office visit. The patient has been instructed to continue with current medications as previously directed, continue with regular FSBS monitoring to assure continued control of diabetes. Pt to call for any acute concerns, complaints, or if the blood glucose readings are starting to become less controlled. Hypertension - well controlled - continue with current medications, continue with no added salt diet. Pt has been encouraged to exercise daily. The pt has been advised to call the office if there are any acute concerns about change in blood pressure readings at home. Hyperlipidemia - pt has been counseled about appropriate diet, exercise, and need for low fat food choices. I have discussed the need for the patient to take medications as prescribed. If the patient has negative side effects from the medication, they are to CALL the office and not abruptly discontinue the medication without discussion with a practitioner in the office. We will check labs in 3-6 months for follow up on the patient's chronic medical problem and to assure normal liver response to medications. Sciatica- exercises discussed with the patient, pt to continue with antiinflammatories. Pt is to call if the symptoms do not improve or if they worsen. 04/06/2018 Appointment: Willa Singh WPtel: [phone] [place] [phone] (30 min) Complex 04/06/2018 Patient Education: Patient Medication Summary Completed 04/06/2018 Patient Education: Diabetes Completed 04/06/2018 Patient Education: Cholesterol Management Completed 04/06/2018 Patient Education: .[employer] Breath MD- low back pain Completed 04/06/2018 Patient Education: .[employer] Pro Breath MD Exercise for Sciatica Completed 04/06/2018 Visit Plan: Left foot pain/swelling -history of 5th metatarsal fracture -will xray foot -rx for walking boot provided and instructed on use -instructed patient we will call her with results of xray. Patient verbalized understanding of plan. 02/20/2018 Appointment: Willa Singh WPtel: [facility] [place] [place] [phone] (15 min) Moderate 02/20/2018 Patient Education: Patient Medication Summary Completed 02/20/2018 Visit Plan: Hypertension - well controlled - continue with current medications, continue with no added salt diet. Pt has been encouraged to exercise daily. The pt has been advised to call the office if there are any acute concerns about change in blood pressure readings at home. Diabetes Mellitus - I have recommended for the patient to have follow up labs prior to the next office visit. The patient has been instructed to continue with current medications as previously directed, continue with regular FSBS monitoring to assure continued control of diabetes. Pt to call for any acute concerns, complaints, or if the blood glucose readings are starting to become less controlled. Hyperlipidemia - pt has been counseled about appropriate diet, exercise, and need for low fat food choices. I have discussed the need for the patient to take medications as prescribed. If the patient has negative side effects from the medication, they are to CALL the office and not abruptly discontinue the medication without discussion with a practitioner in the office. We will check labs in 3-6 months for follow up on the patient's chronic medical problem and to assure normal liver response to medications. Cough-start mucinex-call if it does not resolve 01/23/2018 App[facility]ment: [facility]el[facility] [phone] [phone] [facility] Patient 01/23/2018 Patient Education: Patient Medication Summary Completed 01/23/2018 Patient Education: Diabetes Completed 01/23/2018 Patient Education: Cholesterol Management Completed 01/23/2018 Patient Education: Depression Completed 01/23/2018 Instructions Comment . Left foot pain/swelling -history of 5th metatarsal fracture -will xray foot -rx for walking boot provided and instructed on use - instructed patient we will call her with results of xray. Patient verbalized understanding of plan. WEIGHT CHECK IN 1 MONTH . DM-increase metformin as directed Obesity - chronic issue with this patient. The pt has been counseled about diet changes, calorie restriction, and need to exercise. Pt will RTC in one month for weight check. Hypothyroidism-start on Synthroid -repeat labs in 3 months Back pain -vjikenyu-lyqqmmka-hayr if symptoms return aleve 2 pills twice daily x 10 days -take with food fasting labs consider trulicity for diabetes . Diabetes Mellitus - I have recommended for the patient to have follow up labs prior to the next office visit. The patient has been instructed to continue with current medications as previously directed, continue with regular FSBS monitoring to assure continued control of diabetes. Pt to call for any acute concerns, complaints, or if the blood glucose readings are starting to become less controlled. Hypertension - well controlled - continue with current medications, continue with no added salt diet. Pt has been encouraged to exercise daily. The pt has been advised to call the office if there are any acute concerns about change in blood pressure readings at home. Hyperlipidemia - pt has been counseled about appropriate diet, exercise, and need for low fat food choices. I have discussed the need for the patient to take medications as prescribed. If the patient has negative side effects from the medication, they are to CALL the office and not abruptly discontinue the medication without discussion with a practitioner in the office. We will check labs in 3-6 months for follow up on the patient's chronic medical problem and to assure normal liver response to medications. Sciatica- exercises discussed with the patient, pt to continue with antiinflammatories. Pt is to call if the symptoms do not improve or if they worsen. . Hypertension - well controlled - continue with current medications, continue with no added salt diet. Pt has been encouraged to exercise daily. The pt has been advised to call the office if there are any acute concerns about change in blood pressure readings at home. Left foot pain - pt to have surgery on the left foot - Dr. Combs to perform surgery on foot next week. Diabetes Mellitus - controlled - per recent FSBS reports. I have recommended for the patient to have follow up labs prior to the next office visit. The patient has been instructed to continue with current medications as previously directed, continue with regular FSBS monitoring to assure continued control of diabetes. Pt to call for any acute concerns, complaints, or if the blood glucose readings are starting to become less controlled. mucinex for your cough sign a release to get your records . Hypertension - well controlled - continue with current medications, continue with no added salt diet. Pt has been encouraged to exercise daily. The pt has been advised to call the office if there are any acute concerns about change in blood pressure readings at home. Diabetes Mellitus - I have recommended for the patient to have follow up labs prior to the next office visit. The patient has been instructed to continue with current medications as previously directed, continue with regular FSBS monitoring to assure continued control of diabetes. Pt to call for any acute concerns, complaints, or if the blood glucose readings are starting to become less controlled. Hyperlipidemia - pt has been counseled about appropriate diet, exercise, and need for low fat food choices. I have discussed the need for the patient to take medications as prescribed. If the patient has negative side effects from the medication, they are to CALL the office and not abruptly discontinue the medication without discussion with a practitioner in the office. We will check labs in 3-6 months for follow up on the patient's chronic medical problem and to assure normal liver response to medications. Cough-start mucinex-call if it does not resolve
--- OUTSIDE RECORDS SUMMARY | 2018-05-22 06:10 | XMS REPORT | CCD ---
Author Author Willa Singh MD, [facility] Address [address] [place] [address] Phone Care Team Providers Care Straddle Bug Name Role Phone PP Unavailable CCM Unavailable Summary Purpose Interface Exchange Insurance Providers Payer name Policy type / Coverage type Covered democrat ID Effective Begin Date Effective End Date WPS Medicare Part B Medicare Part B [id number] 2018 Unknown [employer] Medicare Part B [id number] Unknown Family History Family History data not found Social History Social History Element Codes Description Effective Dates Marital status Unknown Enrique 01/23/2018 Number of children Unknown 4 01/23/2018 Employment Unknown Retired 01/23/2018 Employment Unknown Retired 01/23/[address]: 726098436 Never smoker 01/23/[address]: 257659553 Never drinks alcohol 01/23/2018 Allergies, Adverse Reactions, Alerts Substance Reaction Codes Entered Date Inactivated Date Status * NO KNOWN DRUG ALLERGIES Unknown 04/06/2018 No Inactive Date Active Past Medical History Illness Codes Condition Status Onset Date Resolved Date Hypothryroidism Unknown Active 04/24/2018 Unknown Hypothyroidism, unspecified ICD-9: 244.9 ICD-10: E03.9 Active 04/24/2018 Unknown Lumbago with sciatica, right side ICD-9: 724.3 ICD-10: M54.41 Active 04/06/2018 Unknown Major depressive disorder, recurrent, mild ICD-9: 296.31 ICD-10: F33.0 Active 01/23/2018 Unknown Type 2 diabetes mellitus without complications ICD-9: 250.00 ICD-10: E11.9 Active 01/23/2018 Unknown Other specified abnormal findings of blood chemistry ICD-9: 794.5 ICD-10: R79.89 Active 04/11/2018 Unknown Sciatica Unknown Active 04/06/2018 Unknown Essential (primary) hypertension ICD-9: 401.1 ICD-10: I10 Active 01/23/2018 Unknown Mixed hyperlipidemia ICD-9: 272.2 ICD-10: E78.2 Active 01/23/2018 Unknown Pain in left foot ICD- 9: 729.5 ICD-10: M79.672 Active 02/20/2018 Unknown Diabetes Unknown Active 01/23/2018 Unknown Cough ICD-9: 786.2 ICD-10: R05 Active 01/23/2018 Unknown Problems Condition Codes Effective Dates Condition Status Hypothryroidism Unknown 04/24/2018 Active Hypothyroidism, unspecified ICD-9: 244.9 ICD-10: E03.9 04/24/2018 Active Lumbago with sciatica, right side ICD-9: 724.3 ICD-10: M54.41 04/06/2018 Active Major depressive disorder, recurrent, mild ICD-9: 296.31 ICD-10: F33.0 01/23/2018 Active Type 2 diabetes mellitus without complications ICD-9: 250.00 ICD-10: E11.9 01/23/2018 Active Other specified abnormal findings of blood chemistry ICD-9: 794.5 ICD-10: R79.89 04/11/2018 Active Sciatica Unknown 04/06/2018 Active Essential (primary) hypertension ICD-9: 401.1 ICD-10: I10 01/23/2018 Active Mixed hyperlipidemia ICD-9: 272.2 ICD-10: E78.2 01/23/2018 Active Pain in left foot ICD- 9: 729.5 ICD-10: M79.672 02/20/2018 Active Diabetes Unknown 01/23/2018 Active Cough ICD-9: 786.2 ICD-10: R05 01/23/2018 Active Medications Medication Codes Instructions Start Date Stop Date Status Fill Instructions metformin ER 1,000 mg 24 hr tablet,extended release RxNorm: 7859572 1 Tablet(s) PO daily 04/24/2018 07/17/2019 Active Synthroid 25 mcg tablet RxNorm: 523755 1 Tablet(s) PO QAM 04/1207/10/2018 Active Synthroid 25 mcg tablet RxNorm: 929922 1 Tablet(s) PO QAM 04/1204/11/2018 Inactive Lipitor 10 mg tablet RxNorm: 118636 1 Tablet(s) PO daily 201702/24/2019 Active lisinopril 20 mg tablet RxNorm: 178500 1 Tablet(s) PO daily 12/201708/11/2018 Active Lipitor 10 mg tablet RxNorm: 092950 1 Tablet(s) PO every other day 02/13/2018 03/01/2018 Inactive metformin ER 500 mg tablet,extended release 24 hr RxNorm: 695751 1 Tablet(s) PO daily 02/06/2018 04/23/2018 Inactive sertraline 100 mg tablet RxNorm: 608583 1 Tablet(s) PO daily 07/21/2018 Active lisinopril 20 mg tablet RxNorm: 793308 1 Tablet(s) PO daily 02/12/2018 Inactive Lipitor 10 mg tablet RxNorm: 289617 1 Tablet(s) PO daily 201701/22/2018 Inactive lisinopril 20 mg tablet RxNorm: 939968 1 Tablet(s) PO daily 01/22/2018 Inactive Lipitor 10 mg tablet RxNorm: 829769 1 Tablet(s) PO every other day 01/23/2018 02/12/2018 Inactive tamoxifen 20 mg tablet RxNorm: 797602 1 Tablet(s) PO daily No Start Date Active aspirin 81 mg tablet,delayed release RxNorm: 575917 1 Tablet(s) PO daily No Start Date Active metformin ER 500 mg tablet,extended release 24 hr RxNorm: 172984 1 Tablet(s) PO daily No Start Date 02/05/2018 Inactive sertraline 100 mg tablet RxNorm: 600574 1 Tablet(s) PO daily No Start Date 01/22/2018 Inactive Medication Administered No Medication Administered data Immunizations No Immunization data Assessments Condition Codes Effective Dates Type 2 diabetes mellitus without complications ICD-10: E11.9 ICD-9: 250.00 04/24/2018 Lumbago with sciatica, right side ICD-10: M54.41 ICD-9: 724.3 04/24/2018 Major depressive disorder, recurrent, mild ICD-10: F33.0 ICD-9: 296.31 04/24/2018 Hypothyroidism, unspecified ICD-10: E03.9 ICD-9: 244.9 04/24/2018 Other specified abnormal findings of blood chemistry ICD-10 : R79.89 ICD-9: 794.5 04/11/2018 Essential (primary) hypertension ICD-10: I10 ICD-9: 401.1 04/06/2018 Mixed hyperlipidemia ICD-10: E78.2 ICD-9: 272.2 04/06/2018 Pain in left foot ICD-10: M79.672 ICD-9: 729.5 02/20/2018 Cough ICD-10: R05 ICD-9: 786.2 01/23/2018 Reason For Visit Reason For Visit Effective Dates Notes low back and leg pain 04/24/2018 low back and leg pain 04/06/2018 foot pain 02/20/2018 cough 01/23/2018 Results Observation Observation Code Item Item Code Result Date Free T4 Gye079 FREE T4 0.71 ng/dL 04/11/2018 Cbc With [...] 32.1 pg 04/07/2018 Cbc With Differential Ord2 [place]% 10.0 % 04/07/2018 Cbc With Differential Ord2 [...] 2.15 K/ul 04/07/2018 Cbc With Differential Ord2 [place] ABS# 0.7 K/ul 04/07/2018 Cbc With Differential Ord2 Eos ABS# 0.2 K/ul 04/07/2018 Cbc With Differential Ord2 Baso ABS# 0.0 K/ul 04/07/2018 Lipid Ord30 CHOL 161 mg/dL 04/07/2018 Lipid Ord30 HDL 56.0 mg/dl 04/07/2018 Lipid Ord30 TRIG 99 mg/dL 04/07/2018 Lipid Ord30 LDL 85 mg/dL 04/07/2018 Lipid Ord30 C/HDL 2.9 Ratio 04/07/2018 Tsh Ord6 TSH (3rd IS) 7.03 uIU/mL 04/07/2018 Comp Metabolic Mtu749 NA 141 mEq/L 04/07/2018 Comp Metabolic Xyu596 K 3.9 mEq/L 04/07/2018 Comp Metabolic Djk525 CL 103 mEq/L 04/07/2018 Comp Metabolic Gax262 CO2 30.0 mEq/L 04/07/2018 Comp Metabolic Vrx016 ANION GAP 12 04/07/2018 Comp Metabolic Cbp990 GLUCOSE 127 mg/dL 04/07/2018 Comp Metabolic Ibo633 Creat 0.8 mg/dL 04/07/2018 Comp Metabolic Zxg478 eGFR 78 ml/min/1.73m2 04/07/2018 Comp Metabolic Hvs124 BUN 16 mg/dL 04/07/2018 Comp Metabolic Cvg319 B/C Ratio 20.8 Ratio 04/07/2018 Comp Metabolic Zgp533 CALCIUM 8.9 mg/dL 04/07/2018 Comp Metabolic Kor040 ALK PHOS 48 U/L 04/07/2018 Comp Metabolic Xwa018 AST(SGOT) 17 U/L 04/07/2018 Comp Metabolic Jjj992 ALT(SGPT) 17 U/L 04/07/2018 Comp Metabolic Muf258 BILI T 0.7 mg/dL 04/07/2018 Comp Metabolic Xbp887 ALBUMIN 3.6 g/dL 04/07/2018 Comp Metabolic Bcc304 TPRO 6.0 g/dL 04/07/2018 Comp Metabolic Aoj216 GLOB 2.4 g/dL 04/07/2018 Comp Metabolic Nzg214 A/G Ratio 1.5 Ratio 04/07/2018 Comp Metabolic Fqa685 Osmo 284 mOsmo 04/07/2018 %Hba1C Daj109 % HbA1c 88860-8 6.7 % 04/07/2018 %Hba1C Edd437 Gluc Ave 146 mg/dL 04/07/2018 Review of Systems System Result Effective Dates Constitutional No recent illness 2017 Constitutional No [...] time 04/06/2018 None Full Exam - General 1994 [...] No Procedures data Vital Signs Date Vital 04/24/2018 Blood Pressure 1: 140/82 Code : 8480-6 BMI: 36.8 Code : 54717-9 Heart Rate 1 : 80 bpm Height: 5'6" SpO2: 92% Weight: 228 lbs 04/06/2018 Blood Pressure 1: 136/56 Code : 8480-6 BMI: 36.6 Code : 19541-8 Heart Rate 1 : 91 bpm Height: 5'6" SpO2: 97% Weight: 227 lbs 02/20/2018 Blood Pressure 1: 140/70 Code : 8480-6 BMI: 36.2 Code : 92540-0 Heart Rate 1 : 88 bpm Height: 5'6" SpO2: 95% Weight: 224 lbs 01/23/2018 Blood Pressure 1: 142/66 Code : 8480-6 BMI: 36.8 Code : 94767-5 Heart Rate 1 : 88 bpm Height: 5'6" SpO2: 97% Weight: 228 lbs Functional Status No Functional Status data History of Present Illness Symptom Name Status Result Effective Date Notes Location on the right 04/24/2018 None Quality [...] data Encounters Encounter Performer Location Codes Date ([id number]) [id number] EST. PATIENT, LEVEL III Diagnosis: Type 2 diabetes mellitus without complications[ICD10: E11.9] Diagnosis: Hypothyroidism, unspecified[ICD10: E03.9] Diagnosis: Major depressive disorder, recurrent, mild[ICD10: F33.0] Diagnosis: Lumbago with sciatica, right side[ICD10: M54.41] Willa Foster MD, [facility] CPT-4: 95402 04/24/2018 [id number]) [id number] EST. PATIENT, LEVEL IV Diagnosis: Type 2 diabetes mellitus without complications[ICD10: E11.9] Diagnosis: Mixed hyperlipidemia[ICD10: E78.2] Diagnosis: Essential (primary) hypertension[ICD10: I10] Diagnosis: Lumbago with sciatica, right side[ICD10: M54.41] Willa Foster MD, [facility] CPT-4: 80043 04/06/2018 ([id number]) 99701 EST. PATIENT, LEVEL III Diagnosis: Pain in left foot[ICD10: M79.672] Willa Foster MD, [facility] CPT-4: 72754 02/20/2018 OFFICE VISIT, NEW - LEVEL 3 Diagnosis: Essential (primary) hypertension[ICD10: I10] Diagnosis: Type 2 diabetes mellitus without complications[ICD10: E11.9] Diagnosis: Mixed hyperlipidemia[ICD10: E78.2] Diagnosis: Major depressive disorder, recurrent, mild[ICD10: F33.0] Diagnosis: Cough[ICD10: R05] Willa Foster MD, [facility] CPT-4: 70813 01/23/2018 Plan of Care Planned Activity Notes Codes Status Date Visit Plan: DM-increase metformin as directed Obesity - chronic issue with this patient. The pt has been counseled about diet changes, calorie restriction, and need to exercise. Pt will RTC in one month for weight check. Hypothyroidism-start on Synthroid -repeat labs in 3 months Back pain - cmtvvvgb-qoxbgqzk-uxvx if symptoms return 04/24/2018 Patient Education: Patient Medication Summary Completed [...] they worsen. 04/06/2018 Appointment: Willa Singh WPtel: [address] [place], [place] [phone] (30 min) [facility] 04/06/2018 Patient Education: Patient Medication Summary Completed 04/06/2018 Patient Education: Diabetes Completed 04/06/2018 Patient Education: Cholesterol Management Completed 04/06/2018 Patient Education: .Amazing charts- low back pain Completed 04/06/2018 Patient Education: .Amazing charts Exercise for Sciatica Completed 04/06/2018 Visit Plan: Left foot pain/swelling -history of 5th metatarsal fracture -will xray foot -rx for walking boot provided and instructed on use -instructed patient we will call her with results of xray. Patient verbalized understanding of plan. 02/20/2018 Appointment: Willa Singh WPtel: [facility] [place] [address] (15 min) Moderate 02/20/2018 Patient Education: Patient [...] not resolve 01/23/2018 Appointment: Willa Singh WPtel: [address] [place], [place] [phone] [place] [address] New Patient 01/23/2018 Patient Education: Patient Medication [...] -repeat labs in 3 months Back pain -udohgblw-rhchipib-ubjx if symptoms return aleve 2 pills twice [...] do not improve or if they worsen. mucinex for your cough sign a release [...]
--- OUTSIDE RECORDS SUMMARY | 2018-05-22 06:10 | XMS REPORT | CCD ---
Author Author Willa Singh MD, [facility] Address [address] [place] [address] Phone Care Team Providers Care Services Delivery Driver Name Role Phone PP Unavailable CCM Unavailable Summary Purpose Interface Exchange Insurance Providers Payer name Policy type / Coverage type Covered green party ID Effective Begin Date Effective End Date WPS Medicare Part B Medicare Part B [id number] 2018 Unknown [employer] [place] [employer] [place] Medicare Part B [id number] Unknown Family History Family History data not found Social History Social History Element Codes Description Effective Dates Marital status Unknown Enrique 01/23/2018 Number of children Unknown 4 01/23/2018 Employment Unknown Retired 01/23/2018 Employment Unknown Retired 01/23/[address]: 821380307 Never smoker 01/23/[address]: 549447610 Never drinks alcohol 01/23/2018 Allergies, Adverse Reactions, [...] 1,000 mg 24 hr tablet,extended release RxNorm: 2307313 1 Tablet(s) PO daily 04/24/2018 07/17/2019 Active Synthroid 25 mcg tablet RxNorm: 403919 1 Tablet(s) PO QAM 04/1207/10/2018 Active Synthroid 25 mcg tablet RxNorm: 532669 1 Tablet(s) PO QAM 04/1204/11/2018 Inactive Lipitor 10 mg tablet RxNorm: 340746 1 Tablet(s) PO daily 201702/24/2019 Active lisinopril 20 mg tablet RxNorm: 519545 1 Tablet(s) PO daily 12/201708/11/2018 Active Lipitor 10 mg tablet RxNorm: 063851 1 Tablet(s) PO every other day 02/13/2018 03/01/2018 Inactive metformin ER 500 mg tablet,extended release 24 hr RxNorm: 266472 1 Tablet(s) PO daily 02/06/2018 04/23/2018 Inactive sertraline 100 mg tablet RxNorm: 628548 1 Tablet(s) PO daily 07/21/2018 Active lisinopril 20 mg tablet RxNorm: 856886 1 Tablet(s) PO daily 02/12/2018 Inactive Lipitor 10 mg tablet RxNorm: 806610 1 Tablet(s) PO daily 201701/22/2018 Inactive lisinopril 20 mg tablet RxNorm: 426594 1 Tablet(s) PO daily 01/22/2018 Inactive Lipitor 10 mg tablet RxNorm: 259226 1 Tablet(s) PO every other day 01/23/2018 02/12/2018 Inactive tamoxifen 20 mg tablet RxNorm: 740170 1 Tablet(s) PO daily No Start Date Active aspirin 81 mg tablet,delayed release RxNorm: 806866 1 Tablet(s) PO daily No Start Date Active metformin ER 500 mg tablet,extended release 24 hr RxNorm: 889064 1 Tablet(s) PO daily No Start Date 02/05/2018 Inactive sertraline 100 mg tablet RxNorm: 503779 1 Tablet(s) PO daily No Start Date [...] Item Item Code Result Date Free T4 Tdv566 FREE T4 0.71 ng/dL 04/11/2018 Cbc With [...] 32.1 pg 04/07/2018 Cbc With Differential Ord2 [place]% 10.0 % 04/07/2018 Cbc With Differential Ord2 [...] 2.15 K/ul 04/07/2018 Cbc With Differential Ord2 [place] ABS# 0.7 K/ul 04/07/2018 Cbc With Differential Ord2 Eos ABS# 0.2 K/ul 04/07/2018 Cbc With Differential Ord2 Baso ABS# 0.0 K/ul 04/07/2018 Lipid Ord30 CHOL 161 mg/dL 04/07/2018 Lipid Ord30 HDL 56.0 mg/dl 04/07/2018 Lipid Ord30 TRIG 99 mg/dL 04/07/2018 Lipid Ord30 LDL 85 mg/dL 04/07/2018 Lipid Ord30 C/HDL 2.9 Ratio 04/07/2018 Tsh Ord6 TSH (3rd IS) 7.03 uIU/mL 04/07/2018 Comp Metabolic Vuj697 NA 141 mEq/L 04/07/2018 Comp Metabolic Nrk244 K 3.9 mEq/L 04/07/2018 Comp Metabolic Xxn015 CL 103 mEq/L 04/07/2018 Comp Metabolic Bcb415 CO2 30.0 mEq/L 04/07/2018 Comp Metabolic Sbg406 ANION GAP 12 04/07/2018 Comp Metabolic Eyj545 GLUCOSE 127 mg/dL 04/07/2018 Comp Metabolic Vvt815 Creat 0.8 mg/dL 04/07/2018 Comp Metabolic Qqk079 eGFR 78 ml/min/1.73m2 04/07/2018 Comp Metabolic Htp215 BUN 16 mg/dL 04/07/2018 Comp Metabolic Xow566 B/C Ratio 20.8 Ratio 04/07/2018 Comp Metabolic Qti936 CALCIUM 8.9 mg/dL 04/07/2018 Comp Metabolic Bxp708 ALK PHOS 48 U/L 04/07/2018 Comp Metabolic Hkg908 AST(SGOT) 17 U/L 04/07/2018 Comp Metabolic Wus036 ALT(SGPT) 17 U/L 04/07/2018 Comp Metabolic Nwx669 BILI T 0.7 mg/dL 04/07/2018 Comp Metabolic Izv127 ALBUMIN 3.6 g/dL 04/07/2018 Comp Metabolic Yjz697 TPRO 6.0 g/dL 04/07/2018 Comp Metabolic Owa806 GLOB 2.4 g/dL 04/07/2018 Comp Metabolic Ply397 A/G Ratio 1.5 Ratio 04/07/2018 Comp Metabolic Ztm006 Osmo 284 mOsmo 04/07/2018 %Hba1C Szl708 % HbA1c 73425-9 6.7 % 04/07/2018 %Hba1C Dak581 Gluc Ave 146 mg/dL 04/07/2018 Review of [...] Code : 8480-6 BMI: 36.8 Code : 63239-9 Heart Rate 1 : 80 bpm Height: 5'6" SpO2: 92% Weight: 228 lbs 04/06/2018 Blood Pressure 1: 136/56 Code : 8480-6 BMI: 36.6 Code : 62128-3 Heart Rate 1 : 91 bpm Height: 5'6" SpO2: 97% Weight: 227 lbs 02/20/2018 Blood Pressure 1: 140/70 Code : 8480-6 BMI: 36.2 Code : 69469-5 Heart Rate 1 : 88 bpm Height: 5'6" SpO2: 95% Weight: 224 lbs 01/23/2018 Blood Pressure 1: 142/66 Code : 8480-6 BMI: 36.8 Code : 46365-9 Heart Rate 1 : 88 bpm Height: [...] data Encounters Encounter Performer Location Codes Date ([id number]) [id number] EST. PATIENT, LEVEL III Diagnosis: Type 2 diabetes mellitus without complications[ICD10: E11.9] Diagnosis: Hypothyroidism, unspecified[ICD10: E03.9] Diagnosis: Major depressive disorder, recurrent, mild[ICD10: F33.0] Diagnosis: Lumbago with sciatica, right side[ICD10: M54.41] Willa Foster MD, [facility] CPT-4: 47847 04/24/2018 [id number]) [id number] EST. PATIENT, LEVEL IV Diagnosis: Type 2 diabetes mellitus without complications[ICD10: E11.9] Diagnosis: Mixed hyperlipidemia[ICD10: E78.2] Diagnosis: Essential (primary) hypertension[ICD10: I10] Diagnosis: Lumbago with sciatica, right side[ICD10: M54.41] Willa Foster MD, [facility] CPT-4: 31638 04/06/2018 ([id number]) [id number] EST. PATIENT, LEVEL III Diagnosis: Pain in left foot[ICD10: M79.672] Willa Foster MD, [facility] CPT-4: 18000 02/20/2018 OFFICE VISIT, NEW - LEVEL 3 Diagnosis: Essential (primary) hypertension[ICD10: I10] Diagnosis: Type 2 diabetes mellitus without complications[ICD10: E11.9] Diagnosis: Mixed hyperlipidemia[ICD10: E78.2] Diagnosis: Major depressive disorder, recurrent, mild[ICD10: F33.0] Diagnosis: Cough[ICD10: R05] Willa Foster MD, [facility] CPT-4: 87793 01/23/2018 Plan of Care Planned Activity Notes Codes Status Date Visit Plan: DM-increase metformin as directed Obesity - chronic issue with this patient. The pt has been counseled about diet changes, calorie restriction, and need to exercise. Pt will RTC in one month for weight check. Hypothyroidism-start on Synthroid -repeat labs in 3 months Back pain - iuqsqexl-dpsqtles-rztp if symptoms return 04/24/2018 Patient Education: Patient [...] they worsen. 04/06/2018 Appointment: Willa Singh WPtel: [address] [place], [place] [phone] (30 min) [facility] 04/06/2018 Patient Education: Patient Medication Summary Completed [...] plan. 02/20/2018 Appointment: Willa Singh WPtel: [facility] [place] [address] (15 min) Moderate 02/20/2018 Patient Education: [...] not resolve 01/23/2018 Appointment: Willa Singh WPtel: [address] [place], [place] [phone] [place] [address] New Patient 01/23/2018 Patient Education: Patient Medication [...] -repeat labs in 3 months Back pain -xjuzqxtj-sxgxqvmp-jdbq if symptoms return aleve 2 pills twice [...]
--- OUTSIDE RECORDS SUMMARY | 2018-05-22 06:11 | XMS REPORT | CCD ---
Author Author Willa Singh MD, [facility] Address [address] [place] [address] Phone Care Team Providers Care Garden Worker Name Role Phone PP Unavailable CCM Unavailable Summary Purpose Interface Exchange Insurance Providers Payer name Policy type / Coverage type Covered alliance party ID Effective Begin Date Effective End Date WPS Medicare Part B Medicare Part B [id number] 2018 Unknown [employer] [place] Medicare Part B [id number] Unknown Family History Family History data not found Social History Social History Element Codes Description Effective Dates Marital status Unknown Enrique 01/23/2018 Number of children Unknown 4 01/23/2018 Employment Unknown Retired 01/23/2018 Employment Unknown Retired 01/23/[address]: 524100465 Never smoker 01/23/[address]: 963115854 Never drinks alcohol 01/23/2018 Allergies, Adverse Reactions, Alerts Substance Reaction Codes Entered Date Inactivated Date Status * NO KNOWN DRUG ALLERGIES Unknown 04/06/2018 No Inactive Date Active Past Medical History Illness Codes Condition Status Onset Date Resolved Date Other specified abnormal findings of blood chemistry ICD-9: 794.5 ICD-10: R79.89 Active 04/11/2018 Unknown Sciatica Unknown Active 04/06/2018 Unknown Essential (primary) hypertension ICD-9: 401.1 ICD-10: I10 Active 01/23/2018 Unknown Lumbago with sciatica, right side ICD-9: 724.3 ICD-10: M54.41 Active 04/06/2018 Unknown Mixed hyperlipidemia ICD-9: 272.2 ICD-10: E78.2 Active 01/23/2018 Unknown Type 2 diabetes mellitus without complications ICD-9: 250.00 ICD-10: E11.9 Active 01/23/2018 Unknown Pain in left foot ICD- 9: 729.5 ICD-10: M79.672 Active 02/20/2018 Unknown Diabetes Unknown Active 01/23/2018 Unknown Cough ICD-9: 786.2 ICD-10: R05 Active 01/23/2018 Unknown Major depressive disorder, recurrent, mild ICD-9: 296.31 ICD-10: F33.0 Active 01/23/2018 Unknown Problems Condition Codes Effective Dates Condition Status Other specified abnormal findings of blood chemistry ICD-9: 794.5 ICD-10: R79.89 04/11/2018 Active Sciatica Unknown 04/06/2018 Active Essential (primary) hypertension ICD-9: 401.1 ICD-10: I10 01/23/2018 Active Lumbago with sciatica, right side ICD-9: 724.3 ICD-10: M54.41 04/06/2018 Active Mixed hyperlipidemia ICD-9: 272.2 ICD-10: E78.2 01/23/2018 Active Type 2 diabetes mellitus without complications ICD-9: 250.00 ICD-10: E11.9 01/23/2018 Active Pain in left foot ICD- 9: 729.5 ICD-10: M79.672 02/20/2018 Active Diabetes Unknown 01/23/2018 Active Cough ICD-9: 786.2 ICD-10: R05 01/23/2018 Active Major depressive disorder, recurrent, mild ICD-9: 296.31 ICD-10: F33.0 01/23/2018 Active Medications Medication Codes Instructions Start Date Stop Date Status Fill Instructions Synthroid 25 mcg tablet RxNorm: 127879 1 Tablet(s) PO QAM 04/1207/10/2018 Active Synthroid 25 mcg tablet RxNorm: 019645 1 Tablet(s) PO QAM 04/1204/11/2018 Inactive Lipitor 10 mg tablet RxNorm: 160997 1 Tablet(s) PO daily 201702/24/2019 Active lisinopril 20 mg tablet RxNorm: 476648 1 Tablet(s) PO daily 12/201708/11/2018 Active Lipitor 10 mg tablet RxNorm: 243121 1 Tablet(s) PO every other day 02/13/2018 03/01/2018 Inactive metformin ER 500 mg tablet,extended release 24 hr RxNorm: 443621 1 Tablet(s) PO daily 02/06/2018 05/01/2019 Active sertraline 100 mg tablet RxNorm: 523963 1 Tablet(s) PO daily 07/21/2018 Active lisinopril 20 mg tablet RxNorm: 529182 1 Tablet(s) PO daily 02/12/2018 Inactive Lipitor 10 mg tablet RxNorm: 331970 1 Tablet(s) PO daily 201701/22/2018 Inactive lisinopril 20 mg tablet RxNorm: 422208 1 Tablet(s) PO daily 01/22/2018 Inactive Lipitor 10 mg tablet RxNorm: 165470 1 Tablet(s) PO every other day 01/23/2018 02/12/2018 Inactive tamoxifen 20 mg tablet RxNorm: 782048 1 Tablet(s) PO daily No Start Date Active aspirin 81 mg tablet,delayed release RxNorm: 180220 1 Tablet(s) PO daily No Start Date Active metformin ER 500 mg tablet,extended release 24 hr RxNorm: 882659 1 Tablet(s) PO daily No Start Date 02/05/2018 Inactive sertraline 100 mg tablet RxNorm: 630773 1 Tablet(s) PO daily No Start Date 01/22/2018 Inactive Medication Administered No Medication Administered data Immunizations No Immunization data Assessments Condition Codes Effective Dates Other specified abnormal findings of blood chemistry ICD-10 : R79.89 ICD-9: 794.5 04/11/2018 Lumbago with sciatica, right side ICD-10: M54.41 ICD-9: 724.3 04/06/2018 Type 2 diabetes mellitus without complications ICD-10: E11.9 ICD-9: 250.00 04/06/2018 Essential (primary) hypertension ICD-10: I10 ICD-9: 401.1 04/06/2018 Mixed hyperlipidemia ICD-10: E78.2 ICD-9: 272.2 04/06/2018 Pain in left foot ICD-10: M79.672 ICD-9: 729.5 02/20/2018 Major depressive disorder, recurrent, mild ICD-10: F33.0 ICD-9: 296.31 01/23/2018 Cough ICD-10: R05 ICD-9: 786.2 01/23/2018 Reason For Visit Reason For Visit Effective Dates Notes low back and leg pain 04/06/2018 foot pain 02/20/2018 cough 01/23/2018 Results Observation Observation Code Item Item Code Result Date Free T4 Lcu466 FREE T4 0.71 ng/dL 04/11/2018 Cbc With Differential Ord2 WBC 6.91 K/ul 04/07/2018 Cbc With Differential Ord2 RBC 4.18 M/ul 04/07/2018 Cbc With Differential Ord2 HGB 13.4 g/dl 04/07/2018 Cbc With Differential Ord2 Neut% 55.8 % 04/07/2018 Cbc With Differential Ord2 HCT 40.7 % 04/07/2018 Cbc With Differential Ord2 MCV 97.4 fl 04/07/2018 Cbc With Differential Ord2 Lymph% 31.1 % 04/07/2018 Cbc With Differential Ord2 Dane% 10.0 % 04/07/2018 Cbc With Differential Ord2 MCH 32.1 pg 04/07/2018 Cbc With Differential Ord2 MCHC 32.9 pg 04/07/2018 Cbc With Differential Ord2 Eos% 2.7 % 04/07/2018 Cbc With Differential Ord2 PLT 171 K/ul 04/07/2018 Cbc With Differential Ord2 Baso% 0.4 % 04/07/2018 Cbc With Differential Ord2 RDW 12.9 % 04/07/2018 Cbc With Differential Ord2 Neut ABS# 3.85 K/ul 04/07/2018 Cbc With Differential Ord2 Lymph ABS# 2.15 K/ul 04/07/2018 Cbc With Differential Ord2 Dane ABS# 0.7 K/ul 04/07/2018 Cbc With Differential Ord2 Eos ABS# 0.2 K/ul 04/07/2018 Cbc With Differential Ord2 Baso ABS# 0.0 K/ul 04/07/2018 Lipid Ord30 CHOL 161 mg/dL 04/07/2018 Lipid Ord30 HDL 56.0 mg/dl 04/07/2018 Lipid Ord30 TRIG 99 mg/dL 04/07/2018 Lipid Ord30 LDL 85 mg/dL 04/07/2018 Lipid Ord30 C/HDL 2.9 Ratio 04/07/2018 Tsh Ord6 TSH (3rd IS) 7.03 uIU/mL 04/07/2018 Comp Metabolic Zny306 NA 141 mEq/L 04/07/2018 Comp Metabolic Hjw457 K 3.9 mEq/L 04/07/2018 Comp Metabolic Xyc346 CL 103 mEq/L 04/07/2018 Comp Metabolic Lsq699 CO2 30.0 mEq/L 04/07/2018 Comp Metabolic Law033 ANION GAP 12 04/07/2018 Comp Metabolic Wdb739 GLUCOSE 127 mg/dL 04/07/2018 Comp Metabolic Lgx101 Creat 0.8 mg/dL 04/07/2018 Comp Metabolic Ffp809 eGFR 78 ml/min/1.73m2 04/07/2018 Comp Metabolic Qlm890 BUN 16 mg/dL 04/07/2018 Comp Metabolic Hfx594 B/C Ratio 20.8 Ratio 04/07/2018 Comp Metabolic Adm041 CALCIUM 8.9 mg/dL 04/07/2018 Comp Metabolic Ppq804 ALK PHOS 48 U/L 04/07/2018 Comp Metabolic Ogo149 AST(SGOT) 17 U/L 04/07/2018 Comp Metabolic Azc292 ALT(SGPT) 17 U/L 04/07/2018 Comp Metabolic Pbf334 BILI T 0.7 mg/dL 04/07/2018 Comp Metabolic Gpe696 ALBUMIN 3.6 g/dL 04/07/2018 Comp Metabolic Fka285 TPRO 6.0 g/dL 04/07/2018 Comp Metabolic Nwq937 GLOB 2.4 g/dL 04/07/2018 Comp Metabolic Zjs383 A/G Ratio 1.5 Ratio 04/07/2018 Comp Metabolic Npj966 Osmo 284 mOsmo 04/07/2018 %Hba1C Lrk143 % HbA1c 16206-9 6.7 % 04/07/2018 %Hba1C Atx778 Gluc Ave 146 mg/dL 04/07/2018 Review of Systems System Result Effective Dates Constitutional recent illness 04/06/2018 Constitutional No anorexia [...] No Procedures data Vital Signs Date Vital 04/06/2018 Blood Pressure 1: 136/56 Code : 8480-6 BMI: 36.6 Code : 12007-0 Heart Rate 1 : 91 bpm Height: 5'6" SpO2: 97% Weight: 227 lbs 02/20/2018 Blood Pressure 1: 140/70 Code : 8480-6 BMI: 36.2 Code : 28130-5 Heart Rate 1 : 88 bpm Height: 5'6" SpO2: 95% Weight: 224 lbs 01/23/2018 Blood Pressure 1: 142/66 Code : 8480-6 BMI: 36.8 Code : 23610-5 Heart Rate 1 : 88 bpm Height: 5'6" SpO2: 97% Weight: 228 lbs Functional Status No Functional Status data History of Present Illness Symptom Name Status Result Effective Date Notes low back and leg pain Quality acute [...] data Encounters Encounter Performer Location Codes Date ([id number]) 45188 EST. PATIENT, LEVEL IV Diagnosis: Type 2 diabetes mellitus without complications[ICD10: E11.9] Diagnosis: Mixed hyperlipidemia[ICD10: E78.2] Diagnosis: Essential (primary) hypertension[ICD10: I10] Diagnosis: Lumbago with sciatica, right side[ICD10: M54.41] Willa Foster MD, [facility] CPT-4: 21400 04/06/2018 ([id number]) 75569 EST. PATIENT, LEVEL III Diagnosis: Pain in left foot[ICD10: M79.672] [facility] CPT-4: 29449 02/20/2018 OFFICE VISIT, NEW - LEVEL 3 Diagnosis: Essential (primary) hypertension[ICD10: I10] Diagnosis: Type 2 diabetes mellitus without complications[ICD10: E11.9] Diagnosis: Mixed hyperlipidemia[ICD10: E78.2] Diagnosis: Major depressive disorder, recurrent, mild[ICD10: F33.0] Diagnosis: Cough[ICD10: R05] [facility] CPT-4: 35935 01/23/2018 Plan of Care Planned Activity Notes Codes Status Date Patient Education: Patient Medication Summary Completed 04/11/2018 [...] they worsen. 04/06/2018 Appointment: Willa Singh WPtel: [address] [place], [place] [phone] (30 min) [facility] 04/06/2018 Patient Education: Patient Medication Summary Completed [...] 02/20/2018 Appointment: Willa Singh WPtel: [facility] [place] [phone] (15 min) Moderate 02/20/2018 Patient Education: Patient [...] not resolve 01/23/2018 Appointment: Willa Singh WPtel: [phone] New Patient 01/23/2018 Patient Education: Patient Medication [...] of xray. Patient verbalized understanding of plan. aleve 2 pills twice daily x 10 [...]
--- OUTSIDE RECORDS SUMMARY | 2018-05-22 06:11 | XMS REPORT | CCD ---
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 Name Role Phone PP Unavailable CCM Unavailable Summary Purpose Interface Exchange Insurance Providers Payer name Policy type / Coverage type Covered constitution party ID Effective Begin Date Effective End Date WPS Medicare Part B Medicare Part B [id number] 2018 Unknown [employer] [place] Medicare Part B [id number] Unknown Family History Family History data not found Social History Social History Element Codes Description Effective Dates Marital status Unknown Enrique 01/23/2018 Number of children Unknown 4 01/23/2018 Employment Unknown Retired 01/23/2018 Employment Unknown Retired 01/23/[address]: 778168936 Never smoker 01/23/[address]: 903144357 Never drinks alcohol 01/23/2018 Allergies, Adverse Reactions, [...] Fill Instructions Synthroid 25 mcg tablet RxNorm: 572206 1 Tablet(s) PO QAM 04/1207/10/2018 Active Synthroid 25 mcg tablet RxNorm: 750232 1 Tablet(s) PO QAM 04/1204/11/2018 Inactive Lipitor 10 mg tablet RxNorm: 227713 1 Tablet(s) PO daily 201702/24/2019 Active lisinopril 20 mg tablet RxNorm: 916557 1 Tablet(s) PO daily 12/201708/11/2018 Active Lipitor 10 mg tablet RxNorm: 293842 1 Tablet(s) PO every other day 02/13/2018 03/01/2018 Inactive metformin ER 500 mg tablet,extended release 24 hr RxNorm: 673298 1 Tablet(s) PO daily 02/06/2018 05/01/2019 Active sertraline 100 mg tablet RxNorm: 573536 1 Tablet(s) PO daily 07/21/2018 Active lisinopril 20 mg tablet RxNorm: 379873 1 Tablet(s) PO daily 02/12/2018 Inactive Lipitor 10 mg tablet RxNorm: 981558 1 Tablet(s) PO daily 201701/22/2018 Inactive lisinopril 20 mg tablet RxNorm: 710083 1 Tablet(s) PO daily 01/22/2018 Inactive Lipitor 10 mg tablet RxNorm: 037661 1 Tablet(s) PO every other day 01/23/2018 02/12/2018 Inactive tamoxifen 20 mg tablet RxNorm: 168014 1 Tablet(s) PO daily No Start Date Active aspirin 81 mg tablet,delayed release RxNorm: 685752 1 Tablet(s) PO daily No Start Date Active metformin ER 500 mg tablet,extended release 24 hr RxNorm: 143219 1 Tablet(s) PO daily No Start Date 02/05/2018 Inactive sertraline 100 mg tablet RxNorm: 513037 1 Tablet(s) PO daily No Start Date [...] Item Item Code Result Date Free T4 Jft161 FREE T4 0.71 ng/dL 04/11/2018 Cbc With [...] 32.1 pg 04/07/2018 Cbc With Differential Ord2 [place]% 10.0 % 04/07/2018 Cbc With Differential Ord2 [...] 2.15 K/ul 04/07/2018 Cbc With Differential Ord2 [place] ABS# 0.7 K/ul 04/07/2018 Cbc With Differential Ord2 Eos ABS# 0.2 K/ul 04/07/2018 Cbc With Differential Ord2 Baso ABS# 0.0 K/ul 04/07/2018 Lipid Ord30 CHOL 161 mg/dL 04/07/2018 Lipid Ord30 HDL 56.0 mg/dl 04/07/2018 Lipid Ord30 TRIG 99 mg/dL 04/07/2018 Lipid Ord30 LDL 85 mg/dL 04/07/2018 Lipid Ord30 C/HDL 2.9 Ratio 04/07/2018 Tsh Ord6 TSH (3rd IS) 7.03 uIU/mL 04/07/2018 Comp Metabolic Gsw411 NA 141 mEq/L 04/07/2018 Comp Metabolic Hlj421 K 3.9 mEq/L 04/07/2018 Comp Metabolic Jra517 CL 103 mEq/L 04/07/2018 Comp Metabolic Pny977 CO2 30.0 mEq/L 04/07/2018 Comp Metabolic Rwy427 ANION GAP 12 04/07/2018 Comp Metabolic Mcd147 GLUCOSE 127 mg/dL 04/07/2018 Comp Metabolic Hlu669 Creat 0.8 mg/dL 04/07/2018 Comp Metabolic Dze029 eGFR 78 ml/min/1.73m2 04/07/2018 Comp Metabolic Gco553 BUN 16 mg/dL 04/07/2018 Comp Metabolic Ygv011 B/C Ratio 20.8 Ratio 04/07/2018 Comp Metabolic Ngp211 CALCIUM 8.9 mg/dL 04/07/2018 Comp Metabolic Bzd106 ALK PHOS 48 U/L 04/07/2018 Comp Metabolic Ixx761 AST(SGOT) 17 U/L 04/07/2018 Comp Metabolic Oqv826 ALT(SGPT) 17 U/L 04/07/2018 Comp Metabolic Pzz986 BILI T 0.7 mg/dL 04/07/2018 Comp Metabolic Cza373 ALBUMIN 3.6 g/dL 04/07/2018 Comp Metabolic Ddp060 TPRO 6.0 g/dL 04/07/2018 Comp Metabolic Kam814 GLOB 2.4 g/dL 04/07/2018 Comp Metabolic Rth910 A/G Ratio 1.5 Ratio 04/07/2018 Comp Metabolic Sal915 Osmo 284 mOsmo 04/07/2018 %Hba1C Hmg647 % HbA1c 26930-6 6.7 % 04/07/2018 %Hba1C Hwl919 Gluc Ave 146 mg/dL 04/07/2018 Review of [...] Code : 8480-6 BMI: 36.6 Code : 89273-9 Heart Rate 1 : 91 bpm Height: 5'6" SpO2: 97% Weight: 227 lbs 02/20/2018 Blood Pressure 1: 140/70 Code : 8480-6 BMI: 36.2 Code : 31797-1 Heart Rate 1 : 88 bpm Height: 5'6" SpO2: 95% Weight: 224 lbs 01/23/2018 Blood Pressure 1: 142/66 Code : 8480-6 BMI: 36.8 Code : 00055-0 Heart Rate 1 : 88 bpm Height: [...] data Encounters Encounter Performer Location Codes Date ([id number]) 87100 EST. PATIENT, LEVEL IV Diagnosis: Type 2 diabetes mellitus without complications[ICD10: E11.9] Diagnosis: Mixed hyperlipidemia[ICD10: E78.2] Diagnosis: Essential (primary) hypertension[ICD10: I10] Diagnosis: Lumbago with sciatica, right side[ICD10: M54.41] Willa Foster MD, [facility] CPT-4: 20515 04/06/2018 ([id number]) 16691 EST. PATIENT, LEVEL III Diagnosis: Pain in left foot[ICD10: M79.672] [facility] CPT-4: 22546 02/20/2018 OFFICE VISIT, NEW - LEVEL 3 Diagnosis: Essential (primary) hypertension[ICD10: I10] Diagnosis: Type 2 diabetes mellitus without complications[ICD10: E11.9] Diagnosis: Mixed hyperlipidemia[ICD10: E78.2] Diagnosis: Major depressive disorder, recurrent, mild[ICD10: F33.0] Diagnosis: Cough[ICD10: R05] [facility] CPT-4: 76223 01/23/2018 Plan of Care Planned Activity Notes [...] they worsen. 04/06/2018 Appointment: Willa Singh WPtel: [address] [place], [place] [phone] (30 min) [facility] 04/06/2018 Patient Education: Patient Medication Summary [...] Appointment: Willa Singh WPtel: [facility] [place] [phone] (15 min) Moderate 02/20/2018 Patient Education: Patient [...] 01/23/2018 Appointment: Willa Singh WPtel: [facility] [phone] New Patient 01/23/2018 Patient Education: Patient Medication [...]
--- OUTSIDE RECORDS SUMMARY | 2018-05-22 06:12 | XMS REPORT | CCD ---
Author Author Willa Singh MD, [facility] Address [address] [place] [address] Phone Care Team Providers Care Dye House Hand Name Role Phone PP Unavailable CCM Unavailable Summary Purpose Interface Exchange Insurance Providers Payer name Policy type / Coverage type Covered democrat ID Effective Begin Date Effective End Date WPS Medicare Part B Medicare Part B [id number] 2018 Unknown [employer] [place] Medicare Part B [id number] Unknown Family History Family History data not found Social History Social History Element Codes Description Effective Dates Marital status Unknown Enrique 01/23/2018 Number of children Unknown 4 01/23/2018 Employment Unknown Retired 01/23/2018 Employment Unknown Retired 01/23/[address]: 526618391 Never smoker 01/23/[address]: 408292449 Never drinks alcohol 01/23/2018 Allergies, Adverse Reactions, Alerts Allergies, Adverse Reactions, Alerts data not found Past Medical History Illness Codes Condition Status Onset Date Resolved Date Pain in left foot ICD- 9: 729.5 ICD-10: M79.672 Active 02/20/2018 Unknown Diabetes Unknown Active 01/23/2018 Unknown Cough ICD-9: 786.2 ICD-10: R05 Active 01/23/2018 Unknown Essential (primary) hypertension ICD-9: 401.1 ICD-10: I10 Active 01/23/2018 Unknown Major depressive disorder, recurrent, mild ICD-9: 296.31 ICD-10: F33.0 Active 01/23/2018 Unknown Mixed hyperlipidemia ICD-9: 272.2 ICD-10: E78.2 Active 01/23/2018 Unknown Type 2 diabetes mellitus without complications ICD-9: 250.00 ICD-10: E11.9 Active 01/23/2018 Unknown Problems Condition Codes Effective Dates Condition Status Pain in left foot ICD- 9: 729.5 ICD-10: M79.672 02/20/2018 Active Diabetes Unknown 01/23/2018 Active Cough ICD-9: 786.2 ICD-10: R05 01/23/2018 Active Essential (primary) hypertension ICD-9: 401.1 ICD-10: I10 01/23/2018 Active Major depressive disorder, recurrent, mild ICD-9: 296.31 ICD-10: F33.0 01/23/2018 Active Mixed hyperlipidemia ICD-9: 272.2 ICD-10: E78.2 01/23/2018 Active Type 2 diabetes mellitus without complications ICD-9: 250.00 ICD-10: E11.9 01/23/2018 Active Medications Medication Codes Instructions Start Date Stop Date Status Fill Instructions Lipitor 10 mg tablet RxNorm: 831938 1 Tablet(s) PO daily 201702/24/2019 Active lisinopril 20 mg tablet RxNorm: 550207 1 Tablet(s) PO daily 12/201708/11/2018 Active Lipitor 10 mg tablet RxNorm: 023652 1 Tablet(s) PO every other day 02/13/2018 03/01/2018 Inactive metformin ER 500 mg tablet,extended release 24 hr RxNorm: 450912 1 Tablet(s) PO daily 02/06/2018 05/01/2019 Active sertraline 100 mg tablet RxNorm: 253411 1 Tablet(s) PO daily 07/21/2018 Active lisinopril 20 mg tablet RxNorm: 165911 1 Tablet(s) PO daily 02/12/2018 Inactive Lipitor 10 mg tablet RxNorm: 677222 1 Tablet(s) PO daily 201701/22/2018 Inactive lisinopril 20 mg tablet RxNorm: 048314 1 Tablet(s) PO daily 01/22/2018 Inactive Lipitor 10 mg tablet RxNorm: 399947 1 Tablet(s) PO every other day 01/23/2018 02/12/2018 Inactive tamoxifen 20 mg tablet RxNorm: 796547 1 Tablet(s) PO daily No Start Date Active aspirin 81 mg tablet,delayed release RxNorm: 065728 1 Tablet(s) PO daily No Start Date Active metformin ER 500 mg tablet,extended release 24 hr RxNorm: 515028 1 Tablet(s) PO daily No Start Date 02/05/2018 Inactive sertraline 100 mg tablet RxNorm: 749346 1 Tablet(s) PO daily No Start Date 01/22/2018 Inactive Medication Administered No Medication Administered data Immunizations No Immunization data Assessments Condition Codes Effective Dates Pain in left foot ICD-10: M79.672 ICD-9: 729.5 02/20/2018 Mixed hyperlipidemia ICD-10: E78.2 ICD-9: 272.2 01/23/2018 Type 2 diabetes mellitus without complications ICD-10: E11.9 ICD-9: 250.00 01/23/2018 Essential (primary) hypertension ICD-10: I10 ICD-9: 401.1 01/23/2018 Major depressive disorder, recurrent, mild ICD-10: F33.0 ICD-9: 296.31 01/23/2018 Cough ICD-10: R05 ICD-9: 786.2 01/23/2018 Reason For Visit Reason For Visit Effective Dates Notes foot pain 02/20/2018 cough 01/23/2018 Results No Results data Review of Systems System Result Effective Dates [...] Result Effective Dates Notes Full Exam - Orthopedics Constitutional general appearance [...] No Procedures data Vital Signs Date Vital 02/20/2018 Blood Pressure 1: 140/70 Code : 8480-6 BMI: 36.2 Code : 38836-9 Heart Rate 1 : 88 bpm Height: 5'6" SpO2: 95% Weight: 224 lbs 01/23/2018 Blood Pressure 1: 142/66 Code : 8480-6 BMI: 36.8 Code : 73134-2 Heart Rate 1 : 88 bpm Height: 5'6" SpO2: 97% Weight: 228 lbs Functional Status No Functional Status data History of Present Illness Symptom Name Status Result Effective Date Notes foot pain Location on the left 02/20/2018 [...] data Encounters Encounter Performer Location Codes Date () 73449 EST. PATIENT, LEVEL III Diagnosis: Pain in left foot[ICD10: M79.672] Willa Foster MD, [facility] CPT-4: 46669 02/20/2018 OFFICE VISIT, NEW - LEVEL 3 Diagnosis: Essential (primary) hypertension[ICD10: I10] Diagnosis: Type 2 diabetes mellitus without complications[ICD10: E11.9] Diagnosis: Mixed hyperlipidemia[ICD10: E78.2] Diagnosis: Major depressive disorder, recurrent, mild[ICD10: F33.0] Diagnosis: Cough[ICD10: R05] [facility] CPT-4: 34891 01/23/2018 Plan of Care Planned Activity Notes Codes Status Date Visit Plan: Left foot pain/swelling -history of 5th metatarsal fracture -will xray foot -rx for walking boot provided and instructed on use -instructed patient we will call her with results of xray. Patient verbalized understanding of plan. 02/20/2018 Appointment: Willa Singh WPtel: [address] [place], [place] [phone] (15 min) Moderate 02/20/2018 Patient Education: Patient [...] resolve 01/23/2018 Appointment: [facility] [address] [facility] [phone] [place] New Patient 01/23/2018 Patient Education: Patient Medication [...] of xray. Patient verbalized understanding of plan. mucinex for your cough sign a release [...]
--- OUTSIDE RECORDS SUMMARY | 2018-05-22 06:12 | XMS REPORT | CCD ---
Author Author Willa Singh MD, [facility] Address [address] [place] [address] Phone Care Team Providers Care Editor City Name Role Phone PP Unavailable CCM Unavailable Summary Purpose Interface Exchange Insurance Providers Payer name Policy type / Coverage type Covered alliance party ID Effective Begin Date Effective End Date WPS Medicare Part B Medicare Part B [id number] 2018 Unknown [employer] [place] Medicare Part B [id number] Unknown Family History Family History data not found Social History Social History Element Codes Description Effective Dates Marital status Unknown Enrique 01/23/2018 Number of children Unknown 4 01/23/2018 Employment Unknown Retired 01/23/2018 Employment Unknown Retired 01/23/[address]: 554041110 Never smoker 01/23/[address]: 281212796 Never drinks alcohol 01/23/2018 Allergies, Adverse Reactions, [...] Fill Instructions Lipitor 10 mg tablet RxNorm: 458156 1 Tablet(s) PO daily 201702/24/2019 Active lisinopril 20 mg tablet RxNorm: 191733 1 Tablet(s) PO daily 12/201708/11/2018 Active Lipitor 10 mg tablet RxNorm: 253886 1 Tablet(s) PO every other day 02/13/2018 03/01/2018 Inactive metformin ER 500 mg tablet,extended release 24 hr RxNorm: 705957 1 Tablet(s) PO daily 02/06/2018 05/01/2019 Active sertraline 100 mg tablet RxNorm: 725928 1 Tablet(s) PO daily 07/21/2018 Active lisinopril 20 mg tablet RxNorm: 421791 1 Tablet(s) PO daily 02/12/2018 Inactive Lipitor 10 mg tablet RxNorm: 098127 1 Tablet(s) PO daily 201701/22/2018 Inactive lisinopril 20 mg tablet RxNorm: 201346 1 Tablet(s) PO daily 01/22/2018 Inactive Lipitor 10 mg tablet RxNorm: 981582 1 Tablet(s) PO every other day 01/23/2018 02/12/2018 Inactive tamoxifen 20 mg tablet RxNorm: 243384 1 Tablet(s) PO daily No Start Date Active aspirin 81 mg tablet,delayed release RxNorm: 117527 1 Tablet(s) PO daily No Start Date Active metformin ER 500 mg tablet,extended release 24 hr RxNorm: 739402 1 Tablet(s) PO daily No Start Date 02/05/2018 Inactive sertraline 100 mg tablet RxNorm: 663163 1 Tablet(s) PO daily No Start Date [...] Observation Code Item Item Code Result Date Cbc With Differential Ord2 WBC 6.91 K/ul [...] 32.1 pg 04/07/2018 Cbc With Differential Ord2 [place]% 10.0 % 04/07/2018 Cbc With Differential Ord2 MCHC 32.9 pg 04/07/2018 Cbc With Differential Ord2 Eos% 2.7 % 04/07/2018 Cbc With Differential Ord2 Baso% 0.4 % 04/07/2018 Cbc With Differential Ord2 PLT 171 K/ul 04/07/2018 Cbc With Differential Ord2 RDW 12.9 % 04/07/2018 Cbc With Differential Ord2 Neut ABS# 3.85 K/ul 04/07/2018 Cbc With Differential Ord2 Lymph ABS# 2.15 K/ul 04/07/2018 Cbc With Differential Ord2 [place] ABS# 0.7 K/ul 04/07/2018 Cbc With Differential Ord2 Eos ABS# 0.2 K/ul 04/07/2018 Cbc With Differential Ord2 Baso ABS# 0.0 K/ul 04/07/2018 Lipid Ord30 CHOL 161 mg/dL 04/07/2018 Lipid Ord30 HDL 56.0 mg/dl 04/07/2018 Lipid Ord30 TRIG 99 mg/dL 04/07/2018 Lipid Ord30 LDL 85 mg/dL 04/07/2018 Lipid Ord30 C/HDL 2.9 Ratio 04/07/2018 Tsh Ord6 TSH (3rd IS) 7.03 uIU/mL 04/07/2018 Comp Metabolic Syc933 NA 141 mEq/L 04/07/2018 Comp Metabolic Oiu302 K 3.9 mEq/L 04/07/2018 Comp Metabolic Dqa915 CL 103 mEq/L 04/07/2018 Comp Metabolic Hbn948 CO2 30.0 mEq/L 04/07/2018 Comp Metabolic Bnt402 ANION GAP 12 04/07/2018 Comp Metabolic Xsn431 GLUCOSE 127 mg/dL 04/07/2018 Comp Metabolic Uyf009 Creat 0.8 mg/dL 04/07/2018 Comp Metabolic Nqc946 eGFR 78 ml/min/1.73m2 04/07/2018 Comp Metabolic Xik545 BUN 16 mg/dL 04/07/2018 Comp Metabolic Dtw919 B/C Ratio 20.8 Ratio 04/07/2018 Comp Metabolic Dzy800 CALCIUM 8.9 mg/dL 04/07/2018 Comp Metabolic Ynf707 ALK PHOS 48 U/L 04/07/2018 Comp Metabolic Rvr484 AST(SGOT) 17 U/L 04/07/2018 Comp Metabolic Sje550 ALT(SGPT) 17 U/L 04/07/2018 Comp Metabolic Mmm291 BILI T 0.7 mg/dL 04/07/2018 Comp Metabolic Oyy031 ALBUMIN 3.6 g/dL 04/07/2018 Comp Metabolic Jrk640 TPRO 6.0 g/dL 04/07/2018 Comp Metabolic Qdd775 GLOB 2.4 g/dL 04/07/2018 Comp Metabolic Zfe029 A/G Ratio 1.5 Ratio 04/07/2018 Comp Metabolic Hic610 Osmo 284 mOsmo 04/07/2018 %Hba1C Quz951 % HbA1c 39418-3 6.7 % 04/07/2018 %Hba1C Fkv487 Gluc Ave 146 mg/dL 04/07/2018 Review of [...] Code : 8480-6 BMI: 36.6 Code : 40633-1 Heart Rate 1 : 91 bpm Height: 5'6" SpO2: 97% Weight: 227 lbs 02/20/2018 Blood Pressure 1: 140/70 Code : 8480-6 BMI: 36.2 Code : 23445-6 Heart Rate 1 : 88 bpm Height: 5'6" SpO2: 95% Weight: 224 lbs 01/23/2018 Blood Pressure 1: 142/66 Code : 8480-6 BMI: 36.8 Code : 79118-6 Heart Rate 1 : 88 bpm Height: [...] data Encounters Encounter Performer Location Codes Date ([id number]) 95061 EST. PATIENT, LEVEL IV Diagnosis: Type 2 diabetes mellitus without complications[ICD10: E11.9] Diagnosis: Mixed hyperlipidemia[ICD10: E78.2] Diagnosis: Essential (primary) hypertension[ICD10: I10] Diagnosis: Lumbago with sciatica, right side[ICD10: M54.41] [facility] CPT-4: 79921 04/06/2018 ([id number]) [id number] EST. PATIENT, LEVEL III Diagnosis: Pain in left foot[ICD10: M79.672] [facility] CPT-4: 91978 02/20/2018 OFFICE VISIT, NEW - LEVEL 3 Diagnosis: Essential (primary) hypertension[ICD10: I10] Diagnosis: Type 2 diabetes mellitus without complications[ICD10: E11.9] Diagnosis: Mixed hyperlipidemia[ICD10: E78.2] Diagnosis: Major depressive disorder, recurrent, mild[ICD10: F33.0] Diagnosis: Cough[ICD10: R05] Willa Foster MD, [facility] CPT-4: 59717 01/23/2018 Plan of Care Planned Activity Notes Codes Status Date Patient Education: Patient Medication Summary Completed 04/11/2018 Care Plan: Free T4 add to lab. Pending 04/11/2018 Visit Plan: Diabetes Mellitus - I [...] they worsen. 04/06/2018 Appointment: Willa Singh WPtel: [address] [place], [place] [phone] (30 min) [facility] 04/06/2018 Patient Education: Patient Medication Summary [...] of plan. 02/20/2018 Appointment: Willa Singh WPtel: [facility] (15 min) Moderate 02/20/2018 Patient Education: [...] not resolve 01/23/2018 Appointment: Willa Singh WPtel: [phone] New Patient 01/23/2018 Patient Education: Patient Medication [...]
--- OUTSIDE RECORDS SUMMARY | 2018-05-22 06:12 | XMS REPORT | CCD ---
Author Author Willa Singh MD, [facility] Address [address] [place] [address] Phone Care Team Providers Care Utilities Equipment Repairer Name Role Phone PP Unavailable CCM Unavailable Summary Purpose Interface Exchange Insurance Providers Payer name Policy type / Coverage type Covered constitution party ID Effective Begin Date Effective End Date WPS Medicare Part B Medicare Part B [id number] 2018 Unknown [employer] Medicare Part B [id number] Unknown Family History Family History data not found Social History Social History Element Codes Description Effective Dates Marital status Unknown Enrique 01/23/2018 Number of children Unknown 4 01/23/2018 Employment Unknown Retired 01/23/2018 Employment Unknown Retired 01/23/[address]: 799138328 Never smoker 01/23/[address]: 509452768 Never drinks alcohol 01/23/2018 Allergies, Adverse Reactions, Alerts Substance Reaction Codes Entered Date Inactivated Date Status * NO KNOWN DRUG ALLERGIES Unknown 04/06/2018 No Inactive Date Active Past Medical History Illness Codes Condition Status Onset Date Resolved Date Sciatica Unknown Active 04/06/2018 Unknown Essential (primary) [...] Problems Condition Codes Effective Dates Condition Status Sciatica Unknown 04/06/2018 Active Essential (primary) hypertension [...] Fill Instructions Lipitor 10 mg tablet RxNorm: 268864 1 Tablet(s) PO daily 201702/24/2019 Active lisinopril 20 mg tablet RxNorm: 331821 1 Tablet(s) PO daily 12/201708/11/2018 Active Lipitor 10 mg tablet RxNorm: 530930 1 Tablet(s) PO every other day 02/13/2018 03/01/2018 Inactive metformin ER 500 mg tablet,extended release 24 hr RxNorm: 500850 1 Tablet(s) PO daily 02/06/2018 05/01/2019 Active sertraline 100 mg tablet RxNorm: 441233 1 Tablet(s) PO daily 07/21/2018 Active lisinopril 20 mg tablet RxNorm: 162486 1 Tablet(s) PO daily 02/12/2018 Inactive Lipitor 10 mg tablet RxNorm: 018744 1 Tablet(s) PO daily 201701/22/2018 Inactive lisinopril 20 mg tablet RxNorm: 142534 1 Tablet(s) PO daily 01/22/2018 Inactive Lipitor 10 mg tablet RxNorm: 774969 1 Tablet(s) PO every other day 01/23/2018 02/12/2018 Inactive tamoxifen 20 mg tablet RxNorm: 860157 1 Tablet(s) PO daily No Start Date Active aspirin 81 mg tablet,delayed release RxNorm: 256663 1 Tablet(s) PO daily No Start Date Active metformin ER 500 mg tablet,extended release 24 hr RxNorm: 165183 1 Tablet(s) PO daily No Start Date 02/05/2018 Inactive sertraline 100 mg tablet RxNorm: 821532 1 Tablet(s) PO daily No Start Date 01/22/2018 Inactive Medication Administered No Medication Administered data Immunizations No Immunization data Assessments Condition Codes Effective Dates Lumbago with sciatica, right side ICD-10: M54.41 [...] 04/06/2018 foot pain 02/20/2018 cough 01/23/2018 Results No [...] Code : 8480-6 BMI: 36.6 Code : 94296-1 Heart Rate 1 : 91 bpm Height: 5'6" SpO2: 97% Weight: 227 lbs 02/20/2018 Blood Pressure 1: 140/70 Code : 8480-6 BMI: 36.2 Code : 81726-3 Heart Rate 1 : 88 bpm Height: 5'6" SpO2: 95% Weight: 224 lbs 01/23/2018 Blood Pressure 1: 142/66 Code : 8480-6 BMI: 36.8 Code : 31891-5 Heart Rate 1 : 88 bpm Height: [...] data Encounters Encounter Performer Location Codes Date ([id number]) [id number] EST. PATIENT, LEVEL IV Diagnosis: Type 2 diabetes mellitus without complications[ICD10: E11.9] Diagnosis: Mixed hyperlipidemia[ICD10: E78.2] Diagnosis: Essential (primary) hypertension[ICD10: I10] Diagnosis: Lumbago with sciatica, right side[ICD10: M54.41] [facility] CPT-4: 35350 04/06/2018 ([id number]) 55809 EST. PATIENT, LEVEL III Diagnosis: Pain in left foot[ICD10: M79.672] [facility] CPT-4: 83375 02/20/2018 OFFICE VISIT, NEW - LEVEL 3 Diagnosis: Essential (primary) hypertension[ICD10: I10] Diagnosis: Type 2 diabetes mellitus without complications[ICD10: E11.9] Diagnosis: Mixed hyperlipidemia[ICD10: E78.2] Diagnosis: Major depressive disorder, recurrent, mild[ICD10: F33.0] Diagnosis: Cough[ICD10: R05] [facility] CPT-4: 20928 01/23/2018 Plan of Care Planned Activity Notes Codes Status Date Visit Plan: Diabetes Mellitus - I have [...] not improve or if they worsen. 04/06/2018 Patient Education: Patient Medication Summary Completed 04/06/2018 Patient Education: Diabetes Completed 04/06/2018 Patient Education: Cholesterol Management Completed 04/06/2018 Patient Education: .Amazing charts- low back pain Completed 04/06/2018 Patient Education: .Laithing charts Exercise for Sciatica Completed 04/06/2018 Care Plan: Comp Metabolic Pending 04/06/2018 Care Plan: Cbc With Differential Pending 04/06/2018 Care Plan: %Hba1C LOINC : 29159-1 Pending 04/06/2018 Care Plan: Tsh Pending 04/06/2018 Care Plan: Lipid Pending 04/06/2018 Visit Plan: Left foot pain/swelling -history of 5th metatarsal fracture -will xray foot -rx for walking boot provided and instructed on use -instructed patient we will call her with results of xray. Patient verbalized understanding of plan. 02/20/2018 Appointment: Willa Singh WPtel: [facility] [address] (15 min) Moderate 02/20/2018 Patient Education: Patient [...] not resolve 01/23/2018 Appointment: Willa Singh WPtel: [phone] New Patient 01/23/2018 Patient Education: Patient Medication [...]
--- OUTSIDE RECORDS SUMMARY | 2018-05-22 06:13 | XMS REPORT | Continuity of Care Document ---
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 RENO, SAAD Mak Ot M25.532 PAIN IN LEFT WRIST 05/17/2018 SHEREE RENOSAAD Ot M79.642 PAIN IN LEFT HAND 05/17/2018 SAAD BENTLEY DO Ot M79.645 PAIN IN LEFT FINGER(S) 05/17/2018 SAAD BENTLEY DO Ot W19.XXXA UNSPECIFIED FALL, INITIAL ENCOUNTER 05/17/2018 MILAN BETANCOURT MAT REPAIRER Ot 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 05/17/2018 MILAN BETANCOURT MAT REPAIRER Ot Z12.31 ENCNTR SCREEN MAMMOGRAM FOR MALIGNANT NE 05/17/2018 SAAD BENTLEY DO Ot S99.922A UNSPECIFIED INJURY OF LEFT FOOT, INITIAL 05/17/2018 LENCHO ERIC Ot 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 05/17/2018 LENCHO ERIC Ot E11.9 TYPE 2 DIABETES MELLITUS WITHOUT COMPLIC 05/17/2018 LENCHO ERIC Ot I10 ESSENTIAL (PRIMARY) HYPERTENSION 05/17/2018 LENCHO ERIC Ot Z79.810 LNG TRM (CRNT) USE OF SLCTV ESTROG QUALITY ASSURANCE AUDITOR 05/17/2018 LENCHO ERIC Ot Z79.899 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 (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 THERAPY 05/17/2018 Ot S92.352A DISP FX OF FIFTH METATARSAL BONE, LEFT F 05/17/2018 Ot X58.XXXA EXPOSURE TO OTHER SPECIFIED FACTORS, INI 05/17/2018 SAAD BENTLEY DO Ot S92.352D DISP FX OF 5TH METATARSAL BONE, L FT, 7T 05/17/2018 SAAD BENTLEY DO Ot S99.922A UNSPECIFIED INJURY OF LEFT FOOT, INITIAL 05/17/2018 NELIDA GERARDP Ot S92.352D DISP FX OF 5TH METATARSAL BONE, L FT, 7T 05/17/2018 NELIDA GERARD MAT REPAIRER Ot S92.352A DISP FX OF FIFTH METATARSAL BONE, LEFT F 05/17/2018 LENCHO ERIC Ot 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 05/17/2018 LENCHO ERIC Ot E11.9 TYPE 2 DIABETES MELLITUS WITHOUT COMPLIC 05/17/2018 LENCHO ERIC Ot I10 ESSENTIAL (PRIMARY) HYPERTENSION 05/17/2018 LENCHO REIC Ot Z79.810 LNG TRM (CRNT) USE OF SLCTV ESTROG QUALITY ASSURANCE AUDITOR 05/17/2018 LENCHO ERIC Ot Z79.899 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 (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 05/17/2018 MARCELO DPM, PRABHA Q Ot Z01.818 ENCOUNTER FOR OTHER PREPROCEDURAL EXAMIN 05/18/2018 MARCELO DPM, PRABHA Q Ot Z01.818 ENCOUNTER FOR OTHER PREPROCEDURAL EXAMIN 05/18/2018 YADIRA RENO, HENNY Kaur Ot 722.52 LUMB/LUMBOSAC DISC DEGEN 05/18/[facility] INCONCLUSIVE MAMMOGRAM 05/18/2018 [facility] V76.12 OTH SCREEN MAMMO-MALIGN NEOPLASM OF CHIDI 05/18/2018 [facility] 793.89 OTH (ABN) FINDINGS ON RADIOLOGICAL EXAMI 05/18/2018 [facility] SAAD Ot 793.80 UNSPEC ABNORMAL MAMMOGRAM 05/18/2018 [facility] 611.72 LUMP OR MASS IN BREAST 05/18/2018 [facility] 793.89 OTH (ABN) FINDINGS ON RADIOLOGICAL EXAMI 05/18/2018 PRABHAKAR SONG MD Ot V10.3 HX OF BREAST MALIGNANCY 05/18/2018 PRABHAKAR SONG MD Ot V72.63 PRE-PROCEDURAL LABORATORY EXAMINATION 05/18/2018 PRABHAKAR SONG MD Ot V72.81 [facility]-D[facility]-ADTYICMUY CARDIOVASCULAR 05/18/2018 PRABHAKAR SONG MD Ot V72.84 EXAM PRE-OPERATIVE NOS 05/18/2018 PRABHAKAR SONG MD Ot V74.8 SCREEN-BACTERIAL DIS NEC 05/18/2018 MILAN BETANCOURT Ot 233.0 CA IN SITU BREAST 05/18/2018 [facility] 174.9 MALIGN NEOPL BREAST NOS 05/18/2018 [facility] V45.89 POSTSURGICAL STATES NEC 05/18/2018 [facility] V10.3 HX OF BREAST MALIGNANCY 05/18/2018 [facility] R[facility] Ot V67.09 SURGERY FOLLOW-UP, OTHER SURGERY 05/18/2018 SAAD BENTLEY DO Ot V67.1 RADIOTHERAPY FOLLOW-UP 05/18/2018 BETANCOURT, HILAH S MAT REPAIRER Ot 233.0 CA IN SITU BREAST 05/18/2018 MILAN BETANCOURT MAT REPAIRER Ot D05.90 UNSPECIFIED TYPE OF CARCINOMA IN SITU OF 05/18/2018 SHEREE RENO, SAAD Mak Ot R92.8 OTH ABN AND INCONCLUSIVE FINDINGS ON DX 05/18/2018 SHEREE RENO, SAAD Mak Ot Z86.000 PERSONAL HISTORY OF IN-SITU NEOPLASM OF 05/18/2018 LENCHO ERIC Juliann Ot 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 05/18/2018 LENCHO ERIC Ot E11.9 TYPE 2 DIABETES MELLITUS WITHOUT COMPLIC 05/18/2018 LENCHO ERIC N Ot I10 ESSENTIAL (PRIMARY) HYPERTENSION 05/18/2018 LENCHO ERIC Ot Z79.810 LNG TRM (CRNT) USE OF SLCTV ESTROG QUALITY ASSURANCE AUDITOR 05/18/2018 LENCHO ERIC Juliann Ot 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 05/18/2018 LENCHO ERIC Juliann Ot E11.9 TYPE 2 DIABETES MELLITUS WITHOUT COMPLIC 05/18/2018 LENCHO ERIC Juliann Ot I10 ESSENTIAL (PRIMARY) HYPERTENSION 05/18/2018 LENCHO ERIC Ot Z79.810 LNG TRM (CRNT) USE OF SLCTV ESTROG QUALITY ASSURANCE AUDITOR 05/18/2018 MILAN BETANCOURT MAT REPAIRER Ot Z12.31 ENCNTR SCREEN MAMMOGRAM FOR MALIGNANT NE 05/18/2018 SHEREE RENO, SAAD Mak Ot M25.532 PAIN IN LEFT WRIST 05/18/2018 GELLENDER DO, SAAD Mak Ot M79.642 PAIN IN LEFT HAND 05/18/2018 GELLENDER DO, SAAD Mak Ot M79.645 PAIN IN LEFT FINGER(S) 05/18/2018 GAYATHRILENDER DO, SAAD Obdulio Ot W19.XXXA UNSPECIFIED FALL, INITIAL ENCOUNTER 05/18/2018 MILAN BETANCOURT MAT REPAIRER Ot 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 05/18/2018 MLIAN BETANCOURT MAT REPAIRER Ot Z12.31 ENCNTR SCREEN MAMMOGRAM FOR MALIGNANT NE 05/18/2018 ROBERTDER DO, SAAD Obdulio Ot S99.922A UNSPECIFIED INJURY OF LEFT FOOT, INITIAL 05/18/2018 LENCHO ERIC Juliann Ot 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 05/18/2018 LENCHO ERIC Ot E11.9 TYPE 2 DIABETES MELLITUS WITHOUT COMPLIC 05/18/2018 LENCHO ERIC Ot I10 ESSENTIAL (PRIMARY) HYPERTENSION 05/18/2018 LENCHO ERIC Ot Z79.810 LNG TRM (CRNT) USE OF SLCTV ESTROG QUALITY ASSURANCE AUDITOR 05/18/2018 LENCHO ERIC Ot Z79.899 OTHER HORSE 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 (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 THERAPY 05/18/2018 Ot S92.352A DISP FX OF FIFTH METATARSAL BONE, LEFT F 05/18/2018 Ot X58.XXXA EXPOSURE TO OTHER SPECIFIED FACTORS, INI 05/18/2018 SAAD BENTLEY DO Ot S92.352D DISP FX OF 5TH METATARSAL BONE, L FT, 7T 05/18/2018 SAAD BENTLEY DO Ot S99.922A UNSPECIFIED INJURY OF LEFT FOOT, INITIAL 05/18/2018 NELIDA GERARD Ot S92.352D DISP FX OF 5TH METATARSAL BONE, L FT, 7T 05/18/2018 NELIDA GERARD Ot S92.352A DISP FX OF FIFTH METATARSAL BONE, LEFT F Procedures Code Description Performed By Performed On 00.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 Visit Date/Time Discharge Status Pt. Type Provider Facility Loc./Unit Complaint [id number] 05/17/2018 09:40:00 05/17/2018 10:29:00 DIS Outpatient PRABHA ROBERTSON DPM [facility] PREOP ORIF LEFT 5TH METATARSAL FRACTURE [id number] 03/23/2018 13:48:00 03/23/2018 23:59:59 CLS Outpatient NELIDA GERARD [facility] RAD LEFT FOOT PAIN FOLLOW UP [id number] 02/20/2018 15:21:00 02/20/2018 23:59:59 CLS Outpatient MOUSTAPHABRUCEMANUELA Sims MAT REPAIRER [facility] RAD LT FOOT PAIN, FRACTURE [id number] 11/07/2017 16:58:00 11/07/2017 23:59:59 CLS Outpatient SAAD BENTLEY DO [facility] RAD PAIN LEFT FOOT [id number] 08/25/2017 00:10:00 08/25/2017 23:59:59 CLS Preadmit LENCHO ERIC [facility] ONC [id number] 06/03/2017 15:13:00 08/24/2017 00:01:00 DIS Outpatient LENCHO ERIC [facility] ONC [id number] 08/18/2017 10:26:00 08/18/2017 23:59:59 CLS Outpatient SAAD BENTLEY DO [facility] RAD LEFT FOOT PAIN, TRAUMA [id number] 06/29/2017 14:24:00 06/29/2017 23:59:59 CLS Outpatient MILAN BETANCOURTP [facility] RAD Z12.31 [id number] 05/13/2017 12:28:00 05/13/2017 23:59:59 CLS Outpatient SAAD BENTLEY DO [facility] RAD M79.642 [id number] 06/28/2016 10:24:00 06/28/2016 23:59:59 CLS Outpatient MILAN BETANCOURT MAT REPAIRER [facility] RAD SCREENING [id number] 05/27/2016 12:32:00 05/27/2016 23:59:59 CLS Outpatient LENCHO ERIC [facility] ONC [id number] 11/13/2015 12:57:00 11/13/2015 23:59:59 CLS Outpatient LENCHO ERIC [facility] ONC [id number] 06/25/2015 13:17:00 06/25/2015 23:59:59 CLS Outpatient SAAD BENTLEY DO [facility] RAD DCIS [id number] 05/14/2015 12:40:00 05/14/2015 23:59:59 CLS Outpatient MILAN BETANCOURT [facility] ONC [id number] 12/18/2014 12:56:00 12/18/2014 23:59:59 CLS Outpatient SAAD BENTLEY DO [facility] RAD DCIS [id number] 11/06/2014 13:04:00 11/06/2014 23:59:59 CLS Outpatient MILAN BETANCOURT [facility] ONC [id number] 08/15/2014 14:48:00 08/20/2014 09:25:00 DIS Outpatient LENCHO ERIC [facility] ONC [id number] 06/19/2014 09:39:00 06/19/2014 23:59:59 CLS Outpatient SAAD BENTLEY DO [facility] RAD BREAST CA [id number] 06/13/2014 12:27:00 06/13/2014 13:54:00 DIS Emergency BENSON BRYSON MD [facility] ER R SHOULDER PAIN,BILAT KNEE PAIN; FALL [id number] 01/30/2014 08:46:00 02/20/2014 00:01:00 DIS Outpatient LENCHO ERIC [facility] ONC [id number] 01/30/2014 08:44:00 01/30/2014 23:59:59 CLS Outpatient MILAN BETANCOURT [facility] ONC [id number] 11/06/2013 14:16:00 11/21/2013 00:01:00 DIS Outpatient LENCHO ERIC [facility] ONC [id number] 09/07/2013 06:41:00 09/07/2013 15:35:00 DIS Outpatient PRABHAKAR SONG MD [facility] SDC LEFT BREAST CANCER [id number] 09/03/2013 12:46:00 09/03/2013 23:59:59 CLS Outpatient PRABHAKAR SONG MD [facility] PREOP LEFT BREAST CANCER [id number] 08/17/2013 10:21:00 08/17/2013 23:59:59 CLS Outpatient SAAD BENTLEY DO [facility] RAD LT BREAST LESION [id number] 08/02/2013 12:55:00 08/02/2013 23:59:59 CLS Outpatient SAAD BENTLEY DO [facility] RAD 4 MONTH F/U [id number] 03/21/2013 13:20:00 03/21/2013 23:59:59 CLS Outpatient SAAD BENTLEY DO [facility] RAD ABNORMAL MAMMO [id number] 03/05/2013 14:24:00 03/05/2013 23:59:59 CLS Outpatient SAAD BENTLEY DO [facility] RAD ROUTINE [id number] 01/17/2013 13:50:00 01/17/2013 23:59:59 CLS Outpatient HENNY MAY DO [facility] RAD LUMBAR RADICULOPATHY [id number] 05/22/2018 08:00:00 PEN Preadmit MARCELO DPM, PRABHA Q [facility] SDC LEFT FIFTH METATARSAL FRACTURE [id number] 09/09/2017 14:30:00 Document Registration [id number] 06/27/2014 12:40:00 Document Registration [id number] 08/01/2012 06:52:00 Document Registration [id number] 07/27/2012 13:01:00 Document Registration [id number] 03/02/2012 08:48:00 Document Registration [id number] 08/27/2011 11:00:00 Document Registration [id number] 08/18/2011 05:56:00 Document Registration [id number] 08/09/2011 09:30:00 Document Registration [id number] 03/01/2011 09:46:00 Document Registration [id number] 10/13/2017 07:55:53 10/13/2017 23:59:59 CLS Outpatient
[2018-05-22] MEDS ORDERED: ceFAZolin INJECTION 1,000 MG in NS (IVPB) 50 ML IV ONE (06:15)
[2018-05-22 06:20] VITALS: BP 155/74
[2018-05-22] MEDS: LACTATED RINGERS 1,000 ML IV PRN ×2 (06:20→08:45)
[2018-05-22] MEDS ORDERED: ceFAZolin 1,000 MG/10 ML (ANCEF) VIAL ONE (06:30)
[2018-05-22] MEDS ORDERED: NS (IVPB) 50 ML ONE (06:30)
[2018-05-22] MEDS ORDERED: LIDOCAINE PF 2% 5 ML (XYLOCAINE) VIAL ONE (07:06)
[2018-05-22] MEDS ORDERED: proPOfol 200 MG/20 ML (DIPRIVAN) VIAL IV ONE (07:06)
[2018-05-22] MEDS ORDERED: MIDAZOLAM 2 MG/2 ML (VERSED) VIAL ONE (07:07)
[2018-05-22] MEDS ORDERED: LIDOCAINE 1% INJ 20 ML 20 ML VIAL ONE (07:08)
[2018-05-22] MEDS ORDERED: BUPIVACAINE 0.5% 30 ML (SENSORCAINE) VIAL ONE (07:08)
[2018-05-22] MEDS ORDERED: DEXAMETHASONE 10 MG/ML (DECADRON) 1 ML VIAL ONE ×2 (07:08→08:10)
[2018-05-22] MEDS ORDERED: fentaNYL INJECTION 100 MCG/2 ML AMP ONE (07:08)
[2018-05-22] MEDS ORDERED: SEVOFLURANE (ULTANE) 15 ML INHAL SOLN ONE ×6 (07:10→09:38)
--- NOTE | 2018-05-22 07:37 | Progress Note-Pre Operative ---
Pre-Operative Progress Note H&P Reviewed The H&P was reviewed, patient examined and no changes noted. Date Seen by Provider: May 22, 2018 Time Seen by Provider: 07:36 Date H&P Reviewed: May 22, 2018 Time H&P Reviewed: 07:36 Pre-Operative Diagnosis: Fracture of left 5th metatarsal PRABHA ROBERTSON DPM May 22, 2018 07:37
[2018-05-22] MEDS ORDERED: ONDANSETRON 4 MG/2 ML (SDV) Z0FRAN ONE (08:10)
[2018-05-22] MEDS ORDERED: LACTATED RINGERS 1,000 ML IV SCH (09:32)
--- NOTE | 2018-05-22 09:32 | Progress Note-Post Operative ---
Post-Operative Progess Note Surgeon (s)/Debt Collector (s) Surgeon PRABHA ROBERTSON DPM Debt Collector: none Pre-Operative Diagnosis Fracture of left 5th metatarsal Post-Operative Diagnosis same Procedure & Operative Findings Date of Procedure 05/22/18 Procedure Performed/Findings ORIF of left 5th metatarsal fracture Anesthesia Type General Estimated Blood Loss Estimated blood loss (mL): Minimal Specimens/Packing Specimens Removed None PRABHA ROBERTSON DPM May 22, 2018 09:32
--- NOTE | 2018-05-22 09:34 | Diagnostic Imaging Report ---
CLINICAL INDICATION: Patient with open reduction internal fixation of the left fifth metatarsal bone. EXAM: Limited intraoperative x-ray of the left foot, 2 views. COMPARISON: X-ray of the left foot dated 03/23/2018. FINDINGS AND IMPRESSION: There is interval placement of sideplate and screws internally fixing the mid and proximal aspect of the fifth metatarsal bone in the region of known fracture. Fracture fragments are in anatomic alignment. Please see surgeon's report for more detail. Fluoroscopy was provided for surgeons and a total of 6 seconds was provided. Dictated by: Dictated on workstation # [id number]
[2018-05-22] MEDS ORDERED: CEPH500C PO (09:37)
[2018-05-22] MEDS ORDERED: ACHD5005 PO (09:37)
[2018-05-22] MEDS ORDERED: HYDROcodone/APAP 5 MG/325 MG (LORTAB) TAB PO PRN (09:45)
[2018-05-22] MEDS ORDERED: ONDANSETRON 4 MG/2 ML (SDV) Z0FRAN IVP PRN (09:45)
[2018-05-22] MEDS ORDERED: morphine INJ 10 MG/ML 1ML (SYR OR VIAL) IVP ONE (09:45)
--- NOTE | 2018-05-22 10:06 | OPERATIVE REPORT ---
DATE OF SERVICE: 05/22/2018 SURGEON: Tena Robertson DPM PREOPERATIVE DIAGNOSIS: Fracture of left fifth metatarsal. POSTOPERATIVE DIAGNOSIS: Fracture of left fifth metatarsal. PROCEDURE: Open reduction and internal fixation of left fifth metatarsal fracture. WOUND CLASS: Clean. ANESTHESIA: General. HEMOSTASIS: Pneumatic thigh tourniquet at 300 mmHg. INDICATIONS: This 73-year-old female presents complaining of a chronic fracture to the left fifth metatarsal. Conservative therapy is met with unsatisfactory results and the patient is agreeable to surgical intervention after risks and complications were discussed at length. No guarantees were extended to the patient and she is going to proceed. DESCRIPTION OF PROCEDURE: The patient was brought back to the operating table, placed in a secure supine position. Appropriate time out was performed. A pneumatic thigh tourniquet was placed on the left lower extremity over several layers of padding. The left foot was then prepped and draped in normal sterile manner. The left foot was then elevated and allowed to exsanguinate after which the tourniquet was inflated to 300 mmHg. Attention was then directed to the lateral aspect of the left 5th metatarsal where a 4 cm longitudinal linear incision was created. The incision was deepened in the same plane with great care to identify and retract all vital neurovascular structures. All the necessary blood vessels were cauterized as encountered. The incision was deepened down to the periosteum where a longitudinal periosteal incision was made exposing the lateral eminence to the fracture site to the fifth metatarsal mid diaphysis. The hypertrophic callus formation was reduced utilizing osteotome and mallet and further contoured and smoothed with a power rasp. Next, utilizing a 1 mm drill, the lateral gap was exposed and fenestration was performed both proximally and distally at the fracture site, which was transverse. The wound was flushed with copious amounts of normal saline. Next, lateral plating was performed with a Trilliant Gridlock plating system where a 4-hole linear plate was applied with 2.4 mm screw fixation. The proximal screw was 16 mm in length, locking as well as a 12 mm locking screw. Placement was confirmed by intraoperative C-arm. Next, the distal third hole was an offset screw for compression, which was 12 mm nonlocking screw, applying again compression to the fracture site. The final distal screw was 10 mm in length. Excellent bony apposition and fixation was appreciated at this time. The wound was flushed with copious amounts of normal saline and closure was then performed in layers. Deep closure was performed with 3-0 Vicryl, superficial with 4-0 Vicryl and skin closed with 4-0 Prolene in a horizontal mattress type stitch. Postoperative injection consisted of 1:1 mixture of 1% Xylocaine, 0.5% Marcaine injected in the local infusion to the surgical site of 10 mL of the mixture. Postoperative dressing consisted of Betadine soaked Adaptic, sterile 4 x 4, sterile Kerlix, ABDs, soft roll, posterior splint, secured with two Wilmer wraps. The patient tolerated the anesthesia and procedure well and was transported from the operating room to the recovery area with vital signs stable and vascular status intact to all digits of the left foot. Postoperative instructions were dispensed to the patient, which is to be nonweightbearing left foot. She was given a prescription for Vicodin and Keflex postoperatively. She is to follow up in my office in 10 days' period of time or sooner if necessary. Job ID: [id number] DocumentID: [id number] Dictated Date: 05/22/2018 09:45:44 Foreign Exchange Clerk Date: 05/22/2018 10:05:06 Dictated By: TENA ROBERTSON DPM
[2018-05-22 10:30] VITALS: BP 144/68
[2018-05-22 11:00] VITALS: BP 144/72
--- NOTE | 2018-05-22 11:08 | Anesthesia-General Post-Op ---
General Patient Condition Mental Status/LOC: Same as Preop Cardiovascular: Satisfactory Nausea/Vomiting: Absent Respiratory: Satisfactory Pain: Controlled Complications: Absent Post Op Complications Complications None Follow Up Care/Instructions Patient Instructions None needed. Anesthesia/Patient Condition Patient Condition Patient is doing well, no complaints, stable vital signs, no apparent adverse anesthesia problems. No complications reported per nursing. ROM HICKS CRNA May 22, 2018 11:08
[2018-05-22 11:30] VITALS: BP 139/66
[2018-05-22 11:41] VITALS: BP 139/66
--- NOTE | 2018-05-22 12:21 | Physical Therapy Ortho Eval ---
PT Orthopedic Evaluation Type of Surgery left 5th metatarsal repair secondary to fracture Prior Level of Function Current Living Status: Alone Locomotion (Upon Admit): Independent Established Durable Medical Eq: Front Wheeled Walker knee scooter Subjective Subjective Agrees to PT Entry Into Home: Stairs With Railing Steps Into Home: 3 Steps Accessories: Railing Present Motor Control Motor Control: Motor Control WNL ROM ROM: WFL, except focal deficit Strength Strength: WFL Transfer Transfers (B, C, W/C) (FIM): 5 Gait Gait Assistive Device: FWW knee scooter Right Lower Extremity: Right Weight Bearing Status RLE: Full Weight Bearing Left Lower Extremity: Left Weight Bearing Status LLE: Non Weight Bearing (heel contact with steps (per physician)) performed step with family assist and left heel contact x 2 attempts with use of gait belt as well Gait (FIM): 1 Distance (FIM): 1=up to 49 ft Distance: 15' Gait Level of Assist: 4 Summary/Comments patient is able to maintain NWB left LE short distances with FWW Treatment Rendered Treatment: Gait Train, Step Train Assessment/Goals Goal Time Frame: 1 Visit Safe Ambulation: Yes Plan Treatment Plan: Discharge Treatment Duration: eval PT/Family Agrees to Plan: Yes Time Time In: 1138 Time Out: 1152 Total Billed Treatment Time: 14 Billed Treatment Time 1 visit EVLow 14 min [place] PHAM PT May 22, 2018 12:21
== END 2018-05-22 11:53 | disposition home or self-care (01) ==
LOC: SDC 06:04
PROVIDERS: ATTEND Podiatrist Foot & Ankle Surgery
DX: S92.352A Displaced fracture of fifth metatarsal bone, left foot, initial encounter for closed fracture (principal); X58.XXXA Exposure to other specified factors, initial encounter; E11.9 Type 2 diabetes mellitus without complications; I10 Essential (primary) hypertension; E78.5 Hyperlipidemia, unspecified; F32.9 Major depressive disorder, single episode, unspecified; Z79.84 Long term (current) use of oral hypoglycemic drugs; Z79.899 Other long term (current) drug therapy; Z79.82 Long term (current) use of aspirin; Z85.3 Personal history of malignant neoplasm of breast
CPT/HCPCS: 82962

== ENCOUNTER → 2018-07-03 | Outpatient (CLI) | payer MEDICARE, OTHER ==
[~2018-07-03] MED LIST changes: +CEPH500C PO
[2018-07-03 13:16] LABS: BASOPHILS % (AUTO) 1 % (0-10); EOSINOPHILS # (AUTO) 0.1 10^3/uL (0.0-0.3); EOSINOPHILS % (AUTO) 2 % (0-10); HEMATOCRIT 39 % (35-52); LYMPHOCYTES # (AUTO) 2.1 X 10^3 (1.0-4.0); LYMPHOCYTES % (AUTO) 33 % (12-44); MEAN CORPUSCULAR HEMOGLOBIN 31 PG (25-34); MEAN CORPUSCULAR HGB CONC 33 G/DL (32-36); MEAN CORPUSCULAR VOLUME 95 FL (80-99); MEAN PLATELET VOLUME 11.5 FL (7.4-10.4); MONOCYTES # (AUTO) 0.6 X 10^3 (0.0-1.0); MONOCYTES % (AUTO) 9 % (0-12); NEUTROPHILS # (AUTO) 3.7 X 10^3 (1.8-7.8); NEUTROPHILS % (AUTO) 56 % (42-75); PLATELET COUNT 162 10^3/uL (130-400); RED CELL DISTRIBUTION WIDTH 12.9 % (10.0-14.5); WHITE BLOOD COUNT 6.5 10^3/uL (4.3-11.0)
[2018-07-03 13:42] LABS: ALANINE AMINOTRANSFERASE 15 U/L (0-55); ALBUMIN 3.8 GM/DL (3.2-4.5); ALKALINE PHOSPHATASE 56 U/L (40-136); BILIRUBIN,TOTAL 0.6 MG/DL (0.1-1.0); BUN/CREATININE RATIO 18; CALCIUM 9.3 MG/DL (8.5-10.1); CARBON DIOXIDE 27 MMOL/L (21-32); CHLORIDE 108 MMOL/L (98-107); CREATININE SERUM 0.88 MG/DL (0.60-1.30); GFR ESTIMATED > 60; GLUCOSE 128 MG/DL (70-105); POTASSIUM 4.1 MMOL/L (3.6-5.0); SODIUM 142 MMOL/L (135-145); TOTAL PROTEIN 6.6 GM/DL (6.4-8.2)
== END ==
LOC: EDSTATUS 08-25 12:50 → ONC 13:08
PROVIDERS: ATTEND Internal Medicine Hematology & Oncology
DX: D05.12 Intraductal carcinoma in situ of left breast (principal); Z79.810 Long term (current) use of selective estrogen receptor modulators (SERMs); Z79.899 Other long term (current) drug therapy; Z92.3 Personal history of irradiation
CPT/HCPCS: 36415; 80053; 85025; 99213

== ENCOUNTER → 2018-07-04 | Outpatient (CLI) | payer MEDICARE, OTHER ==
--- NOTE | 2018-07-04 18:59 | Diagnostic Imaging Report ---
INDICATION: Screening. Comparison made with prior examination from 06/29/2017 back through 03/02/2012. The current study was also evaluated with a Computer Aided Detection (CAD) system. 3-D tomosynthesis was performed and reviewed. FINDINGS: There are scattered fibroglandular densities bilaterally. There is a nodular area of architectural distortion in the upper-outer aspect of left breast, which appears to have some increasing pleomorphic microcalcifications within it. There is no other dominant mass. There are vascular calcifications. Skin, nipples, and axillae are unremarkable. IMPRESSION: Nodular area of architectural distortion in the upper-outer aspect of left breast with some increasing pleomorphic microcalcifications within it. Further evaluation with spot compression and magnification compression views as well as ultrasound is recommended. ACR BI-RADS Category 0: Incomplete. (Needs additional imaging evaluation). Result letter will be mailed to the patient. Note: At least 10% of breast cancer is not imaged by mammography. Dictated by: Dictated on workstation # [id number]
== END ==
LOC: RAD 12:50
PROVIDERS: ATTEND Nurse Practitioner Family
DX: Z12.31 Encounter for screening mammogram for malignant neoplasm of breast (principal); N64.89 Other specified disorders of breast
CPT/HCPCS: 77067

== ENCOUNTER → 2018-07-12 | Outpatient (CLI) | payer MEDICARE, OTHER ==
--- NOTE | 2018-07-12 20:42 | Diagnostic Imaging Report ---
INDICATION: Abnormal mammogram. COMPARISON: Correlation made with diagnostic study earlier the same day and screening mammogram from 07/04/2018. EXAMINATION: Sonographic interrogation of the upper outer left breast was performed. FINDINGS: There is an area of shadowing at the 2 o'clock location, 5 cm from the nipple, consistent with the lumpectomy site and scarring. There is an area of curvilinear hyperechogenicity suggestive of calcification, measuring 11 mm x 6 mm x 7 mm. There is some minimal blood flow along the margin. This may represent an oil cyst but close followup is recommended. No additional abnormality is seen. IMPRESSION: Post therapeutic changes in the upper outer left breast. There is some calcification which may be calcification of fat necrosis or oil cyst. Continued followup with left mammogram and left breast ultrasound in six months is recommended to confirm stability. ACR BI-RADS Category 3: Probably benign findings. Result letter will be mailed to the patient. Note: At least 10% of breast cancer is not imaged by mammography. Dictated by: Dictated on workstation # [id number]
--- NOTE | 2018-07-12 20:50 | Diagnostic Imaging Report ---
INDICATION: Patient is status post left breast lumpectomy for carcinoma. There are some increasing calcifications at the lumpectomy site. Study was performed for further evaluation. COMPARISON: Correlation is made with recent screening study from 07/04/2018. EXAMINATION: Unilateral left 2D and 3D diagnostic mammography was performed including a conventional 90 degree lateral view as well as magnification, ML and CC views. FINDINGS: Lumpectomy changes in the upper outer left breast are again noted. There are some calcifications at the lumpectomy site which appear to be fairly benign and coarse. In reviewing last year's mammogram there appear to have been evidence of calcifications present but somewhat blurred by motion artifact. These may represent calcifications from fat necrosis. No discrete mass is seen. IMPRESSION: Somewhat coarse calcifications at the lumpectomy site, perhaps secondary to fat necrosis. Further evaluation with ultrasound of this area is recommended and will be performed today. ACR BI-RADS Category 0: Incomplete. (Needs additional imaging evaluation). Result letter will be mailed to the patient. Note: At least 10% of breast cancer is not imaged by mammography. Dictated by: Dictated on workstation # [id number]
== END ==
LOC: RAD 13:34
PROVIDERS: ATTEND Nurse Practitioner Adult Health
DX: R92.1 Mammographic calcification found on diagnostic imaging of breast (principal); Z86.000 Personal history of in-situ neoplasm of breast; Z79.818 Long term (current) use of other agents affecting estrogen receptors and estrogen levels; Z98.890 Other specified postprocedural states
CPT/HCPCS: 76642

== ENCOUNTER → 2019-01-02 | Outpatient (CLI) | payer MEDICARE, OTHER | LOC: ONC 13:37 | PROVIDERS: ATTEND Internal Medicine Hematology & Oncology | DX: D05.12 Intraductal carcinoma in situ of left breast (principal); Z79.810 Long term (current) use of selective estrogen receptor modulators (SERMs); Z79.899 Other long term (current) drug therapy; Z92.3 Personal history of irradiation ==

== ENCOUNTER → 2019-01-17 | Outpatient (CLI) | payer MEDICARE, OTHER ==
--- NOTE | 2019-01-17 19:14 | Diagnostic Imaging Report ---
INDICATION: Six-month followup left breast calcifications. Patient is status post lumpectomy in the left breast. COMPARISON: Correlation is made with prior mammograms from 07/04/2018 and 06/29/2017. TECHNIQUE: Unilateral left 2-D and 3-D diagnostic mammography was performed. The current study was also evaluated with a Computer Aided Detection (CAD) system. 3-D tomosynthesis was also performed and reviewed. FINDINGS: Scattered fibroglandular densities are identified in the left breast. There are post-lumpectomy changes in the upper-outer left breast. Calcifications at the lumpectomy site appear to be similar to prior exam and again are likely owing to fat necrosis. No mass is seen. Left axilla is unremarkable. IMPRESSION: Stable left mammogram. Calcifications may be secondary to fat necrosis. Ultrasound of this area is again recommended and will be performed today. ACR BI-RADS Category 0: Incomplete. (Needs additional imaging evaluation). Result letter will be mailed to the patient. Note: At least 10% of breast cancer is not imaged by mammography. Dictated by: Dictated on workstation # [id number]
--- NOTE | 2019-01-17 19:18 | Diagnostic Imaging Report ---
INDICATION: Left breast carcinoma, status post lumpectomy. COMPARISON: Correlation is made with mammogram from earlier the same day as well as a prior left breast ultrasound from 07/12/2018. FINDINGS: Sonographic interrogation of the 2 o'clock location of the left breast, 5 cm from the nipple was performed. Previously noted area of curvilinear hyperechogenicity at the lumpectomy site is again noted, likely accounting for the calcification noted mammographically. This area is similar at 11 mm x 7 mm x 7 mm. No new mass is seen. No fluid collection is identified. IMPRESSION: Stable post-lumpectomy changes in the upper-outer left breast with likely areas of fat necrosis or oil cyst at the lumpectomy site. Additional followup mammogram and ultrasound in six months is recommended to show continued stability. ACR BI-RADS Category 3: Probably benign findings. Dictated by: Dictated on workstation # [id number]
== END ==
LOC: RAD 13:40
PROVIDERS: ATTEND Nurse Practitioner Adult Health
DX: C50.912 Malignant neoplasm of unspecified site of left female breast (principal); Z86.000 Personal history of in-situ neoplasm of breast; Z98.890 Other specified postprocedural states
CPT/HCPCS: 76642

== ENCOUNTER → 2019-03-05 | Outpatient (CLI) | payer MEDICARE, OTHER ==
--- NOTE | 2019-03-05 13:48 | Diagnostic Imaging Report ---
PROCEDURE: MR imaging of the brain without contrast. TECHNIQUE: Multiplanar, multisequence MR imaging of the brain was performed without contrast. INDICATION: Patient had a recent fall. FINDINGS: No diffusion restriction is seen to suggest acute ischemia. The normal expected flow voids within the carotid siphons are seen. There are periventricular and subcortical white matter signal abnormalities noted consistent with chronic microvascular ischemia. No midline shift is identified. No definite intra-axial or extra-axial hemorrhage is detected. Corpus callosum is unremarkable. The sella and parasellar structures are unremarkable. IMPRESSION: Changes of chronic microvascular ischemia. No definite acute feature is seen. If there is concern for acute hemorrhage, noncontrast CT brain would be recommended for further evaluation, as this is much more sensitive for detection of acute blood. Dictated by: Dictated on workstation # [id number]
--- NOTE | 2019-03-05 16:59 | Diagnostic Imaging Report ---
INDICATION: Bilateral knee pain. TECHNIQUE: AP, oblique, and lateral views of both knees were obtained. FINDINGS: The right knee prosthesis is in good alignment with no sign of fracture or device loosening. There is no acute abnormality of the right knee. The left knee shows mild patellofemoral spurring. There is prominent medial joint space narrowing on the left side with osteophyte formation. There is mild lateral joint space narrowing on the left side. There is no acute appearing bony abnormality. IMPRESSION: Well aligned right knee prosthesis with no fracture or device loosening. Degenerative findings in the left knee, most prominent in the medial compartment, with no acute abnormality. Dictated by: Dictated on workstation # [id number]
== END ==
LOC: RAD 12:21
PROVIDERS: ATTEND Nurse Practitioner Family
DX: I67.82 Cerebral ischemia (principal); M17.12 Unilateral primary osteoarthritis, left knee; M25.561 Pain in right knee
CPT/HCPCS: 70551

== ENCOUNTER → 2019-07-16 | Outpatient (CLI) | payer MEDICARE, OTHER ==
--- NOTE | 2019-07-16 13:32 | Diagnostic Imaging Report ---
INDICATION: Six-month followup left breast calcifications. COMPARISON: 01/17/2019, 07/04/2018, and 06/29/2017. TECHNIQUE: 2D and 3D bilateral diagnostic mammography was performed with CAD. FINDINGS: Scattered fibroglandular densities are identified bilaterally. There are lumpectomy changes in the upper outer left breast at posterior depth. The areas of calcification and probable fat necrosis appear to be stable. There are vascular calcifications bilaterally. No mass or malignant appearing microcalcifications are seen. The axillae are unremarkable. IMPRESSION: Stable bilateral mammograms. The patient will undergo left breast ultrasound today as well. ACR BI-RADS Category 0: Incomplete. (Needs additional imaging evaluation). Result letter will be mailed to the patient. Note: At least 10% of breast cancer is not imaged by mammography. Dictated by: Dictated on workstation # [id number]
--- NOTE | 2019-07-16 14:50 | Diagnostic Imaging Report ---
INDICATION: Six-month followup left breast calcifications. COMPARISON: Correlation is made with the diagnostic mammogram from earlier this same day as well as a left breast ultrasound from 01/17/2019. FINDINGS: Sonographic interrogation of the 2 o'clock location of the left breast was again performed. The area of curvilinear hyperechogenicity and adjacent hypoechogenicity is stable at 11 mm x 6 mm. This again most likely represents post lumpectomy changes. No new abnormality is seen. Continued followup is recommended. IMPRESSION: Stable left mammogram and left breast ultrasound, likely post therapeutic. An additional 6 month followup is recommended. ACR BI-RADS Category 3: Probably benign findings. Dictated by: Dictated on workstation # [id number]
== END ==
LOC: RAD 12:52
PROVIDERS: ATTEND Nurse Practitioner Adult Health
DX: R92.1 Mammographic calcification found on diagnostic imaging of breast (principal); Z86.000 Personal history of in-situ neoplasm of breast
CPT/HCPCS: 76642; 77066

== ENCOUNTER → 2020-01-03 | Outpatient (CLI) | payer MEDICARE, OTHER ==
[2020-01-03 12:58] LABS: BASOPHILS % (AUTO) 1 % (0-10); EOSINOPHILS # (AUTO) 0.2 10^3/uL (0.0-0.3); EOSINOPHILS % (AUTO) 3 % (0-10); HEMATOCRIT 42 % (35-52); HEMOGLOBIN 13.7 G/DL (11.5-16.0); LYMPHOCYTES % (AUTO) 31 % (12-44); MEAN CORPUSCULAR HEMOGLOBIN 31 PG (25-34); MEAN CORPUSCULAR HGB CONC 33 G/DL (32-36); MEAN CORPUSCULAR VOLUME 96 FL (80-99); MEAN PLATELET VOLUME 10.8 FL (7.4-10.4); MONOCYTES # (AUTO) 0.8 X 10^3 (0.0-1.0); MONOCYTES % (AUTO) 12 % (0-12); NEUTROPHILS # (AUTO) 3.6 X 10^3 (1.8-7.8); NEUTROPHILS % (AUTO) 54 % (42-75); PLATELET COUNT 177 10^3/uL (130-400); RED CELL DISTRIBUTION WIDTH 13.4 % (10.0-14.5); WHITE BLOOD COUNT 6.6 10^3/uL (4.3-11.0)
[2020-01-03 13:16] LABS: ALANINE AMINOTRANSFERASE 21 U/L (0-55); ALKALINE PHOSPHATASE 77 U/L (40-136); BILIRUBIN,TOTAL 0.8 MG/DL (0.1-1.0); BUN/CREATININE RATIO 17; CALCIUM 9.6 MG/DL (8.5-10.1); CARBON DIOXIDE 28 MMOL/L (21-32); CHLORIDE 107 MMOL/L (98-107); CREATININE SERUM 0.86 MG/DL (0.60-1.30); GFR ESTIMATED > 60; GLUCOSE 112 MG/DL (70-105); POTASSIUM 4.7 MMOL/L (3.6-5.0); SODIUM 143 MMOL/L (135-145); TOTAL PROTEIN 6.9 GM/DL (6.4-8.2)
== END ==
LOC: ONC 12:35
PROVIDERS: ATTEND Internal Medicine Hematology & Oncology
DX: D05.12 Intraductal carcinoma in situ of left breast (principal); I10 Essential (primary) hypertension; E11.9 Type 2 diabetes mellitus without complications; Z90.12 Acquired absence of left breast and nipple; Z92.3 Personal history of irradiation
CPT/HCPCS: 80053; 85025; G0463; 99213

== ENCOUNTER → 2020-01-23 | Outpatient (CLI) | payer MEDICARE, OTHER ==
--- NOTE | 2020-01-23 13:47 | Diagnostic Imaging Report ---
INDICATION: Six-month followup left breast calcifications. 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 COMPARISON: Correlation is made to prior mammograms dating back to 06/29/2017. TECHNIQUE: Unilateral left 2D and 3D diagnostic mammography was performed with CAD. FINDINGS: Scattered fibroglandular densities in the left breast are noted. There are lumpectomy changes in the upper outer left breast. The area of calcifications in the upper-outer left breast at the lumpectomy site continue to increase in density and become more coarse. These are benign-appearing and likely owing to fat necrosis. No mass or malignant appearing microcalcifications are seen. The left axilla is unremarkable. IMPRESSION: Benign appearing calcifications at the lumpectomy site, likely owing to fat necrosis. The patient should return in June for bilateral screening mammography. ACR BI-RADS Category 2: Benign findings. Result letter will be mailed to the patient. Note: At least 10% of breast cancer is not imaged by mammography. Dictated by: Dictated on workstation # [id number]
== END ==
LOC: RAD 12:35
PROVIDERS: ATTEND Internal Medicine Hematology & Oncology
DX: D05.12 Intraductal carcinoma in situ of left breast (principal)
CPT/HCPCS: 77065; G0279

== ENCOUNTER → 2020-07-16 | Outpatient (CLI) | payer MEDICARE, OTHER ==
[~2020-07-16] MED LIST changes: -LISI-552 PO; +LISI20TA26 PO; +SERT-413 PO
--- NOTE | 2020-07-16 15:55 | Diagnostic Imaging Report ---
INDICATION: Routine screening. COMPARISON: 07/16/2019 and 07/04/2018. TECHNIQUE: 2D and 3D bilateral screening mammography was performed with CAD. FINDINGS: Both breasts are heterogeneously dense, limiting the sensitivity of mammography. Post therapeutic changes in the upper outer left breast are again noted with associated benign calcifications. No mass or malignant appearing microcalcifications are seen. The axillae are unremarkable. IMPRESSION: No mammographic features suspicious for malignancy are identified. ACR BI-RADS Category 2: Benign findings. Result letter will be mailed to the patient. Note: At least 10% of breast cancer is not imaged by mammography. Dictated by: Dictated on workstation # [id number]
== END ==
LOC: RAD 10:24
PROVIDERS: ATTEND Internal Medicine Hematology & Oncology
DX: Z12.31 Encounter for screening mammogram for malignant neoplasm of breast (principal); Z85.3 Personal history of malignant neoplasm of breast
CPT/HCPCS: 77063; 77067

== ENCOUNTER → 2020-12-16 | Outpatient (CLI) | payer MEDICARE, OTHER ==
[2020-12-16 13:36] LABS: BASOPHILS # (AUTO) 0.1 10^3/uL (0.0-0.1); BASOPHILS % (AUTO) 1 % (0-10); EOSINOPHILS # (AUTO) 0.1 10^3/uL (0.0-0.3); EOSINOPHILS % (AUTO) 1 % (0-10); HEMATOCRIT 48 % (35-52); HEMOGLOBIN 15.3 g/dL (11.5-16.0); LYMPHOCYTES # (AUTO) 2.9 10^3/uL (1.0-4.0); LYMPHOCYTES % (AUTO) 35 % (12-44); MEAN CORPUSCULAR HEMOGLOBIN 31 pg (25-34); MEAN CORPUSCULAR HGB CONC 32 g/dL (32-36); MEAN CORPUSCULAR VOLUME 97 fL (80-99); MEAN PLATELET VOLUME 11.3 fL (9.0-12.2); MONOCYTES # (AUTO) 0.8 10^3/uL (0.0-1.0); MONOCYTES % (AUTO) 10 % (0-12); NEUTROPHILS # (AUTO) 4.4 10^3/uL (1.8-7.8); NEUTROPHILS % (AUTO) 53 % (42-75); PLATELET COUNT 185 10^3/uL (130-400); WHITE BLOOD COUNT 8.2 10^3/uL (4.3-11.0)
[2020-12-16 13:54] LABS: ALBUMIN 4.2 GM/DL (3.2-4.5); BILIRUBIN,TOTAL 0.9 MG/DL (0.1-1.0); CREATININE SERUM 1.54 MG/DL (0.60-1.30)
== END ==
LOC: ONC 13:20
PROVIDERS: ATTEND Internal Medicine Hematology & Oncology
DX: Z12.31 Encounter for screening mammogram for malignant neoplasm of breast (principal); E11.9 Type 2 diabetes mellitus without complications; I10 Essential (primary) hypertension; Z92.3 Personal history of irradiation; Z90.12 Acquired absence of left breast and nipple; Z85.3 Personal history of malignant neoplasm of breast
CPT/HCPCS: 80053; 85025; G0463; 99213

== ENCOUNTER → 2021-07-04 | Outpatient (CLI) | payer MEDICARE ==
--- NOTE | 2021-07-04 16:55 | Diagnostic Imaging Report ---
HISTORY: Right knee pain after fall. TECHNIQUE: 3 views of the right knee. COMPARISON: 03/05/2019. FINDINGS: There is a total knee arthroplasty on the right. Alignment is normal and there is no hardware complication seen. There is no significant joint effusion. No fracture is seen. IMPRESSION: Right knee arthroplasty with no hardware complication or acute osseous abnormality seen. Dictated by: Dictated on workstation # [id number]
== END ==
LOC: RAD 16:14
PROVIDERS: ATTEND Physician Assistant
DX: M25.561 Pain in right knee (principal); Z96.651 Presence of right artificial knee joint; W00.0XXA Fall on same level due to ice and snow, initial encounter
CPT/HCPCS: 73562

== ENCOUNTER → 2021-07-21 | Outpatient (CLI) | payer MEDICARE, MEDICAID ==
--- NOTE | 2021-07-21 15:29 | Diagnostic Imaging Report ---
INDICATION: Routine screening. COMPARISON is made with prior mammograms from 07/16/2020 and 07/16/2019. 2-D and 3-D bilateral screening mammography was performed with CAD. Both breasts are heterogeneously dense, limiting the sensitivity of mammography. Post-therapeutic changes in the outer left breast posteriorly appear stable. Extensive vascular calcifications are noted. No mass or malignant-appearing microcalcifications are identified. Axillae are unremarkable. IMPRESSION: BI-RADS Category 2. No mammographic features suspicious for malignancy are identified. ACR BI-RADS Category 2: Benign findings. Result letter will be mailed to the patient. Note: At least 10% of breast cancer is not imaged by mammography. Dictated by: Dictated on workstation # [id number]
== END ==
LOC: RAD 13:30
PROVIDERS: ATTEND Nurse Practitioner Adult Health
DX: Z12.31 Encounter for screening mammogram for malignant neoplasm of breast (principal)
CPT/HCPCS: 77063; 77067

== ENCOUNTER → 2021-12-15 | Outpatient (CLI) | payer MEDICAID, MEDICARE ==
--- NOTE | 2021-12-15 16:19 | Diagnostic Imaging Report ---
Indication: Left hip pain. Time of Exam: 3:08 PM 2 views of the left hip demonstrate normal femoral acetabular alignment. There is mild medial and superior joint space narrowing compatible with degenerative change. The femoral head and neck are intact. Rami are intact. No fractures are seen. IMPRESSION: Degenerative changes. No acute bony abnormality is detected. Dictated by: Dictated on workstation # [id number]
== END ==
LOC: RAD 14:36
PROVIDERS: ATTEND Family Medicine
DX: M16.12 Unilateral primary osteoarthritis, left hip (principal)
CPT/HCPCS: 73502

== ENCOUNTER → 2022-07-22 | Outpatient (CLI) | payer MEDICARE, OTHER ==
--- NOTE | 2022-07-22 12:52 | Diagnostic Imaging Report ---
INDICATION: Routine screening. COMPARISON: 07/21/2021 and 07/16/2020. TECHNIQUE: 2D and 3D bilateral screening mammography was performed with CAD. FINDINGS: Scattered fibroglandular densities are identified bilaterally. The parenchymal pattern is stable. Benign parenchymal and vascular calcifications are noted. No mass or malignant-appearing microcalcifications are seen. The axillae are unremarkable. IMPRESSION: No mammographic features suspicious for malignancy are identified. ACR BI-RADS Category 2: Benign findings. Result letter will be mailed to the patient. Note: At least 10% of breast cancer is not imaged by mammography. Dictated by: Dictated on workstation # [id number]
== END ==
LOC: RAD 10:58
PROVIDERS: ATTEND Internal Medicine Hematology & Oncology
DX: Z12.31 Encounter for screening mammogram for malignant neoplasm of breast (principal); Z85.3 Personal history of malignant neoplasm of breast
CPT/HCPCS: 77063; 77067